=== PATIENT | male | born 2000 | race Caucasian/White ===

== ENCOUNTER 2024-08-01 09:01 | Emergency (ER) | payer OTHER, SELFPAY ==
[2024-08-01 09:37] VITALS: BP 151/82; PULSE 110; RESP 16; TEMP 36.6; O2SAT 98
--- NOTE | 2024-08-01 12:31 | ED_ITS ---
HPI - General Adult General Chief complaint: Unspecified Stated complaint: HEMMORHOIDS Time Seen by Provider: 08/01/24 11:41 Source: patient Mode of arrival: ambulatory Limitations: no limitations History of Present Illness HPI narrative: Patient presents with 8/10 in severity rectal pain. He is concerned for hemorrhoid. No prior GI evaluation / colonoscopy. [place] nausea this morning for the first time but no vomiting. Passing flatus. No prior abdominal surgeries. No abdominal pain. Pain is constant. Started Monday and getting worse. History of hemorrhoids. Not bleeding. Engages in anal receptive intercourse. Has been trying fiber with psyllium gummies to help. Usually, however, he has several bowel movemets a day at baseline but now he is constipated which is new. His last bowel movement was Monday afternoon. He had a fever Monday . He takes Tylenol (1 or 2) in the Am and PM and ibuprofen x2 tablets in the AM and PM. Warm baths help. Related Data Allergies Allergy/AdvReac Type Severity Reaction Status Date / Time No Known Allergies Allergy Verified 08/01/24 09:02 [facility] Past Medical History Medical History History of hemorrhoids Family History Family History (Updated 12/22/17 @ 16:18 by DOCTOR UNKNOWN) Grandparent Family history of malignant neoplasm of breast Family history of malignant neoplasm of esophagus, Onset Age: 80 Father Family history of type 2 diabetes mellitus, Onset Age: 48 Social History Social History Smoking status: Never smoker Second hand tobacco smoke exposure: No Alcohol intake: never Exam Narrative: GENERAL: Well-appearing, well-nourished, and in no acute distress. HEAD: Normocephalic, atraumatic. EYES: Non injected, non icteric ENT: Nares clear, no rhinorrhea or epistaxis. NECK: Supple. CHEST: Speaking in full sentences. No respiratory distress. HEART: Tachycardic rate and rhythm. . ABDOMEN: Soft, nondistended. EXTREMITIES: Normal range of motion. No lower extremity edema. Rectal exam performed with HOLLIE Painter present as contract administrator: No external hemorrhoids or perianal/perirectal abscesses. No evidence of external fissure or sinus tract / ulceration. Patient does have tenderness on digital rectal exam at the 5 o'clock versus 6 o'clock position. It does feel slightly engorged. Prostate not tender to palpation and not boggy. Normal rectal tone. No bleeding. No mucous. No erythema. SKIN: Warm, dry, no rash. NEURO: No focal deficits. Alert and oriented x3. PSYCH: Normal mood and affect. Course Vital Signs Vital signs: Vital Signs Temperature 97.9 F 08/01/24 09:37 Pulse Rate 110 H 08/01/24 09:37 Respiratory Rate 16 08/01/24 09:37 Blood Pressure 151/82 H 08/01/24 09:37 Pulse Oximetry 98 08/01/24 09:37 Oxygen Delivery Room Air 08/01/24 09:37 Temperature 97.8 F 08/01/24 13:34 Pulse Rate 92 08/01/24 13:34 Respiratory Rate 16 08/01/24 13:34 Blood Pressure 122/71 08/01/24 13:34 Pulse Oximetry 98 08/01/24 13:34 Oxygen Delivery Room Air 08/01/24 09:37 Medical Decision Making MDM Narrative Medical decision making narrative: Patient presents with rectal pain which he believes is due to hemorrhoids. In the emergency department he is afebrile with vital signs notable for tachycardia as well as hypertension. He does engage in anal receptive intercourse which puts him at increased risk of other etiologies. However It does feel slightly engorged consistent with an internal hemorrhoid especially given the pain is constant whereas would expect pain from an anal fissure to be more appreciable during our after a bowel movement and more associated with blood on the toilet paper. Offered STI testing but patient declines and he is in presumed monogamous relationship. Handwritten prescription is provided for Sitz bath 15 minutes t.i.d. after each bowel movement to decrease sphincter pressure. Advised to continue stool softeners as bowel regimen for constipation is he currently experiencing but will defer laxatives at this time. Also provided Rx for topical analgesic. Advised follow up with general surgeon and ED return precautions. Stable for discharge. Differential Diagnosis Differential Diagnosis: hemorrhoid (internal/external); rectal prolapse; prostatitis; abscess; fissure; STI Vital Signs Vital Signs: Vital Signs Temperature 97.9 F 08/01/24 09:37 Pulse Rate 110 H 08/01/24 09:37 Respiratory Rate 16 08/01/24 09:37 Blood Pressure 151/82 H 08/01/24 09:37 Pulse Oximetry 98 08/01/24 09:37 Oxygen Delivery Room Air 08/01/24 09:37 Temperature 97.8 F 08/01/24 13:34 Pulse Rate 92 08/01/24 13:34 Respiratory Rate 16 08/01/24 13:34 Blood Pressure 122/71 08/01/24 13:34 Pulse Oximetry 98 08/01/24 13:34 Oxygen Delivery Room Air 08/01/24 09:37 Discharge Plan Discharge Clinical Impression: Anal or rectal pain, Internal hemorrhoid, Constipation Patient Disposition: Home, Self-Care Condition: Stable Instructions: Antibiotic Form, Constipation (DC), High Fiber Diet (ED), Rectal Pain (ED) Additional Instructions: Continue use stool softeners include a high-fiber diet and apply topical analgesic medication but avoid laxatives as these can cause liquids stool which can worsen symptoms. Could also use Sitz bath. Recommend following up outpatient with the surgeon. Return to the emergency department with any new or worsening symptoms such as pain not responding to pain medication. Acetaminophen/Tylenol (maximum 4000 mg per day) is safe to take with NSAIDs (ibuprofen/Motrin) for pain relief. Patient Language: Maori Prescriptions: New psyllium Packet 1 packet PO TID Qty: 30 0RF Rx Instructions: mix into at least 8 oz of water or juice before administering lidocaine [Anecream] 4 % cream 1 applic topical BID PRN (Reason: pain) Qty: 15 0RF ibuprofen 600 mg tablet 600 mg PO TID PRN (Reason: pain) Qty: 30 0RF acetaminophen 500 mg capsule 1,000 mg PO Q6H PRN (Reason: pain) Qty: 30 0RF Follow-up/Referrals: Harms,Aj Gallegos M.D. [Primary Care Provider] - Nas Wahl MD [Physician] - (general surgeon) Stand Alone Forms: Work/School Release IP Time of Disposition: 13:12
[2024-08-01] MEDS: KETOROLAC 30 MG/ML VIAL (*BKC) 15 MG IM (13:22)
[2024-08-01] MEDS: PSYLLIUM POWDER PACKET 1 PACKET PO (13:23)
[2024-08-01] MEDS: LIDOCAINE 2% GEL UROJET 10 ML PKG MUCOUS MEM (13:23)
[2024-08-01 13:34] VITALS: BP 122/71; PULSE 92; RESP 16; TEMP 36.6; O2SAT 98
== END 2024-08-01 13:36 | disposition home or self-care (01) ==
PROVIDERS: Emergency Provider Student in an Organized Health Care Education/Training Program; PCP Family Medicine
DX: K64.8 Other hemorrhoids (principal); K59.00 Constipation, unspecified
CPT/HCPCS: 96372; 99283; A9270; J1885

== ENCOUNTER 2024-08-05 05:01 | Observation (INO) | payer OTHER, SELFPAY ==
[2024-08-05] VITALS (14 sets, daily range): BP systolic 92–138; BP diastolic 49–96; PULSE 70–116; RESP 14–20; TEMP 35.7–38.6; O2SAT 90–99; BMI 30.8
--- NOTE | ~2024-08-05 | CT_ITS ---
CT of the Abdomen and Pelvis: Indication: Gluteal abscess Technique: 2.5 mm axial scans were obtained through the abdomen and pelvis following intravenous adm inistration of 100 cc of Omnipaque 350. Dose reduction technique was used on this scan by utilizing a utomated exposure control and iterative reconstruction technique. The dose-length product (DLP) was 1 338.49 mGy-cm. Findings: Scans through the lung bases are unremarkable. The liver, spleen, pancreas, gallbladder, adrenals and kidneys are within normal limits. No evidence of aortic aneurysm. No lymphadenopathy. No bowel obstruction or bowel wall thickening. There is no evidence to suggest acute appendicitis. Images through the pelvis were performed. Urinary bladder unremarkable. No pelvic mass seen. No ascit es. There is complex multiloculated bilateral perianal abscess. Collection overall measures up to approxi mately 6.9 x 6.5 x 8.9 cm in extent. Impression: Large complex multiloculated bilateral perianal abscess, as detailed above. Reviewed, dictated and finalized at [facility]. CAL FILE CLERK Impression: Large complex multiloculated bilateral perianal abscess, as detailed above.
--- NOTE | 2024-08-05 05:14 | ED_ITS ---
HPI - General Adult General Chief complaint: Recheck/Abnormal Lab/Rx Stated complaint: ANAL SWELLING X 9 DAYS Time Seen by Provider: 08/05/24 05:08 History of Present Illness HPI narrative: Patient 24-year-old gentleman presents emergency department chief complaint pain in the rectal area. Patient reports that he has been having pain since he was seen in the emergency department on the the patient reports that he has been taking lidocaine cream to the area and has started a stool softener. The patient reports he has had no bleeding denies discharge the patient does report that he undergoes receptive anal intercourse and reports that he is non protected but has not had intercourse in 2 weeks. Patient reports he has not used any other items up his rectum denies any trauma. Patient states that his rectal area feels swollen and is tender to touch. Related Data Allergies Allergy/AdvReac Type Severity Reaction Status Date / Time No Known Allergies Allergy Verified 08/05/24 05:07 Review of Systems 2 Review of Systems: A 10 system review of systems was completed on the patient and is negative except for what is stated in the HPI. Nursing and ancillary documentation was reviewed. [facility] Past Medical History Medical History History of hemorrhoids Family History Family History Grandparent Family history of malignant neoplasm of breast Family history of malignant neoplasm of esophagus, Onset Age: 80 Father Family history of type 2 diabetes mellitus, Onset Age: 48 Social History Social History Smoking status: Never smoker Second hand tobacco smoke exposure: No Alcohol intake: never Exam 2 Narrative: GENERAL: Well-appearing, well-nourished, and in no acute distress. HEAD: Normocephalic, atraumatic. EYES: PERRLA and EOMI. ENT: Nares clear, no rhinorrhea or epistaxis. Mucous membranes moist. NECK: Supple. CHEST: Clear to auscultation. No respiratory distress. HEART: Regular rate and rhythm. No murmur heard. Normal peripheral pulses. ABDOMEN: Soft, nontender, nondistended, normal active bowel sounds. EXTREMITIES: Normal range of motion. No edema. : There is redness and swelling in the gluteal area the area surrounding the rectum there is no palpable abscess there is no purulent drainage there is no large external hemorrhoid present SKIN: Warm, dry, no rash. NEURO: No focal deficits. Alert and oriented x3. PSYCH: Normal mood and affect. Course Vital Signs Vital signs: Vital Signs Temperature 37.1 C 08/05/24 05:02 Pulse Rate 116 H 08/05/24 05:02 Respiratory Rate 20 08/05/24 05:02 Blood Pressure 137/96 H 08/05/24 05:02 Pulse Oximetry 99 08/05/24 05:02 Oxygen Delivery Room Air 08/05/24 05:02 Temperature 37.1 C 08/05/24 05:02 Pulse Rate 116 H 08/05/24 05:02 Respiratory Rate 20 08/05/24 05:02 Blood Pressure 137/96 H 08/05/24 05:02 Pulse Oximetry 99 08/05/24 05:02 Oxygen Delivery Room Air 08/05/24 05:02 Medical Decision Making [facility] Narrative Medical decision making narrative: Differential diagnosis includes perianal abscess perirectal abscess, sepsis, cellulitis, Laboratory [place] [address] [place] scan showed a large perianal abscess The case was discussed with surgery the patient was started on Zosyn. A rectal GC chlamydia swab was sent on the patient as well as hepatitis and HIV test Vital Signs Vital Signs: Vital Signs Temperature 37.1 C 08/05/24 05:02 Pulse Rate 116 H 08/05/24 05:02 Respiratory Rate 20 08/05/24 05:02 Blood Pressure 137/96 H 08/05/24 05:02 Pulse Oximetry 99 08/05/24 05:02 Oxygen Delivery Room Air 08/05/24 05:02 Temperature 37.1 C 08/05/24 05:02 Pulse Rate 116 H 08/05/24 05:02 Respiratory Rate 20 08/05/24 05:02 Blood Pressure 137/96 H 08/05/24 05:02 Pulse Oximetry 99 08/05/24 05:02 Oxygen Delivery Room Air 08/05/24 05:02 Lab Data 08/05/24 05:24 08/05/24 05:24 Labs: Lab Results 08/05/24 Range/Units 05:24 WBC 24.0 H (4.5-10.0) K/mm3 RBC 4.75 (4.6-6.20) M/mm3 Hgb 14.4 (14.0-18.0) g/dL Hct 41.2 L (42.0-52.0) % MCV 86.7 (80-100) fl MCH 30.3 (26-34) pg MCHC 35.0 (32-36) g/dl RDW 12.6 (11.5-14.5) % Plt Count 320 (150-375) k/mm3 MPV 10.7 H (7.4-10.4) fl Immature Gran % (Auto) 3.5 H (0-0.5) % Neut % (Auto) 82.0 H (45.5-73.1) % Lymph % (Auto) 6.0 L (18.3-44.2) % [place] % (Auto) 7.6 (2.6-8.5) % Eos % (Auto) 0.2 (0-4.4) % Baso % (Auto) 0.7 (0.2-1.2) % Lymph # (Auto) 1.43 (0.9-3.2) K/mm3 [place] # (Auto) 1.8 H (0.1-0.6) K/mm3 Eos # (Auto) 0.1 (0-0.3) K/mm3 Baso # (Auto) 0.2 H (0.0-0.1) K/mm3 Abs Immat Gran (auto) 0.85 H (0.00-0.031) K/mm3 Absolute Neuts (auto) 19.7 H (1.3-6.7) K/mm3 Absolute Nucleated RBC 0.000 (0.0-0.012) K/mm3 Nucleated RBC % 0.0 (0.0-0.2) % Sodium 134 L (137-145) mmol/L Potassium 3.5 (3.4-5.0) mmol/L Chloride 97 L (98-107) mmol/L Carbon Dioxide 34 H (22-30) mmol/L Anion Gap 3 L (4-12) mmol/L BUN 10 (9-20) mg/dL Creatinine 0.70 (0.7-1.3) mg/dL Estim Creat Clear Calc 184 ml/min Estimated GFR > 60 (59 - ) Glucose 134 H (65-110) mg/dL Lactic Acid 1.2 (0.7-2.0) mmol/L Calcium 9.1 (8.4-10.2) mg/dL Total Bilirubin 1.0 (0.2-1.3) mg/dL AST 48 (17-59) U/L ALT 66 H (6-50) U/L Alkaline Phosphatase 121 (38-126) U/L Total Protein 8.0 (6.3-8.2) g/dL Albumin 3.8 (3.5-5.1) g/dL Lipase 12 L (23-300) U/L Discharge Plan Discharge Clinical Impression: Abscess, perianal, Leukocytosis Patient Disposition: Still a Patient Condition: Stable Patient Language: Kinyarwanda Prescriptions: No Action psyllium Packet 1 packet PO TID Qty: 30 0RF Rx Instructions: mix into at least 8 oz of water or juice before administering lidocaine [Anecream] 4 % cream 1 applic topical BID PRN (Reason: pain) Qty: 15 0RF ibuprofen 600 mg tablet 600 mg PO TID PRN (Reason: pain) Qty: 30 0RF acetaminophen 500 mg capsule 1,000 mg PO Q6H PRN (Reason: pain) Qty: 30 0RF Follow-up/Referrals: Harms,Aj Gallegos M.D. [Primary Care Provider] - Time of Disposition: 06:55
[2024-08-05 05:31] LABS: Basophils Absolute Auto 0.2 K/mm3 (0.0-0.1); Basophils Percent Auto 0.7 % (0.2-1.2); Eosinophils Absolute Auto 0.1 K/mm3 (0-0.3); Eosinophils Percent Auto 0.2 % (0-4.4); Hematocrit 41.2 % (42.0-52.0); Hemoglobin 14.4 g/dL (14.0-18.0); Immature Granulocyte Absolute 0.85 K/mm3 (0.00-0.031); Immature Granulocyte Percent A 3.5 % (0-0.5); Lymphocytes Absolute Auto 1.43 K/mm3 (0.9-3.2); Mean Corpuscular Hemoglobin 30.3 pg (26-34); Mean Corpuscular Volume 86.7 fl (80-100); Mean Platelet Volume 10.7 fl (7.4-10.4); Monocytes Absolute Auto 1.8 K/mm3 (0.1-0.6); Monocytes Percent Auto 7.6 % (2.6-8.5); Neutrophils Absolute Auto 19.7 K/mm3 (1.3-6.7); Platelet Count Result 320 k/mm3 (150-375); Red Blood Count 4.75 M/mm3 (4.6-6.20); Red Cell Distribution Width 12.6 % (11.5-14.5)
[2024-08-05] MEDS: MORPHINE SULFATE (*CRX) 4 MG/ML INJ 2 MG IV PUSH (05:36)
[2024-08-05 05:43] LABS: Lactic Acid Reflex 1.2 mmol/L (0.7-2.0)
[2024-08-05 05:44] LABS: Alanine Aminotransferase 66 U/L (6-50); Albumin Level 3.8 g/dL (3.5-5.1); Alkaline Phosphatase 121 U/L (38-126); Anion Gap 3 mmol/L (4-12); Aspartate Amino Transferase 48 U/L (17-59); Blood Urea Nitrogen 10 mg/dL (9-20); Calcium 9.1 mg/dL (8.4-10.2); Carbon Dioxide 34 mmol/L (22-30); Chloride 97 mmol/L (98-107); Estimated CRCL calculation 184 ml/min; Estimated Glomerular Filt Rate > 60; Glucose 134 mg/dL (65-110); Lipase 12 U/L (23-300); Potassium 3.5 mmol/L (3.4-5.0); Sodium 134 mmol/L (137-145)
--- NOTE | 2024-08-05 05:57 | PC.NURSE ---
Patient being taken to CT via stretcher at this time.
--- NOTE | 2024-08-05 07:22 | PM.IMHP ---
H&P: HPI History of Present Illness Date/Time: 08/05/24 07:22 Chief Complaint: Perianal abscess Narrative: The patient is a 24-year-old male presenting to the emergency department complaining of severe perirectal pain. Patient reports the pain has been present for the last 9 days and has been increasingly worse. The patient reports pressure and swelling in the area. Patient also describes systemic fevers and chills, poor appetite. The patient does report anal receptive intercourse. The patient denies any previous episodes. Workup in the emergency department, including imaging, is significant for large perianal abscess. Review of Systems Review of Systems: All systems reviewed & are unremarkable except as noted in HPI and below PMFSH Past Medical History Medical History History of hemorrhoids Family History Family History Grandparent Family history of malignant neoplasm of breast Family history of malignant neoplasm of esophagus, Onset Age: 80 Father Family history of type 2 diabetes mellitus, Onset Age: 48 Social History Social History Smoking status: Never smoker Second hand tobacco smoke exposure: No Alcohol intake: never Meds Home Medications and Allergies Home Medications ?Medication ?Instructions ?Recorded ?Confirmed ?Type acetaminophen 500 mg capsule 1,000 mg (2 x 500 mg) PO Q6H PRN 08/01/24 Rx pain #30 caps ibuprofen 600 mg tablet 600 mg PO TID PRN pain #30 tabs 08/01/24 Rx lidocaine 4 % topical cream 1 applic topical BID PRN pain #15 08/01/24 Rx (Anecream) grams psyllium 1 packet PO TID #30 ea 08/01/24 Rx Allergies Allergy/AdvReac Type Severity Reaction Status Date / Time No Known Allergies Allergy Verified 08/05/24 05:07 Vital Signs Vital Signs - 24 hr 08/05/24 05:02 Temperature 37.1 C Pulse Rate 116 H Respiratory Rate 20 Blood Pressure 137/96 H Pulse Oximetry 99 Oxygen Delivery Room Air Exam Const: General: cooperative, acute distress mild and uncomfortable HENMT: Head: normal to inspection, normocephalic and atraumatic Eyes: General: appearance normal, both eyes and all related structures Neck: Neck: normal visual inspection and no lymphadenopathy Resp: Auscultation: clear to auscultation bilaterally Cardio: Rate: regular rate Rhythm: regular rhythm GI: Inspection: normal to inspection and non-distended GI Palp: No abdominal tenderness and Yes Soft to palpation Skin: General skin exam: normal color and no rashes or lesions noted Neuro: General: patient oriented x3 and CN's II-XI intact bilaterally Extrem: General: normal to inspection and full ROM H&P: Results Labs Labs: Short CBC 08/05/24 Range/Units 05:24 WBC 24.0 H (4.5-10.0) K/mm3 Hgb 14.4 (14.0-18.0) g/dL Hct 41.2 L (42.0-52.0) % Plt Count 320 (150-375) k/mm3 BMP 08/05/24 05:24 Sodium 134 L Potassium 3.5 Chloride 97 L Carbon Dioxide 34 H BUN 10 Creatinine 0.70 Glucose 134 H Calcium 9.1 Liver Function 08/05/24 Range/Units 05:24 Total Bilirubin 1.0 (0.2-1.3) mg/dL AST 48 (17-59) U/L ALT 66 H (6-50) U/L Alkaline Phosphatase 121 (38-126) U/L Albumin 3.8 (3.5-5.1) g/dL Imaging CT scan - pelvis: My impression: Large perianal abscess Assessment and Plan Assessment and plan (1) Abscess, perianal: Code(s): K61.0 - Anal abscess Status: Acute Assessment and Plan: long discussion with patient and will set up for emergent complex incision and drainage of large perirectal abscess in the operating room, NPO, IV antibiotics
--- NOTE | 2024-08-05 07:25 | WPDHPUPDATE1 ---
History and Physical Update Update Date/Time: 08/05/24 07:25 History and Physical has been reviewed, including an updated exam of the patient. There are NO changes in the patient's condition. Risks, benefits, and alternatives have been discussed and questions answered. Patient agrees to proceed with procedure.
[2024-08-05 07:59] LABS: Hepatitis B Surface Antigen Negative (Negative)
[2024-08-05 08:05] LABS: HAV RESULT Negative (Negative); Hepatitis B Core IgM Result Negative (Negative)
[2024-08-05 08:13] LABS: HIV 1/2 Ab P24 Ag Result Negative (Negative)
[2024-08-05 08:16] LABS: Hepatitis C Virus Antibody Negative (Negative)
[2024-08-05] MEDS: PIPERACILLN/TAZ 3.375GM/NS50ML 3.375 GM/50 ML BAG IVPB ×3 (08:39→20:29)
[2024-08-05 10:23] LABS: Chlamydia trachomatis NOT DETECTED (NOT DETECTE); Neisseria gonorrhoeae PCR NOT DETECTED (NOT DETECTE)
[2024-08-05] MEDS: LACTATED RINGERS 1,000 ML 30 ML IV CONT ×2 (10:27→11:46)
[2024-08-05] MEDS: ACETAMINOPHEN 500 MG TABLET 1000 MG PO (10:28)
[2024-08-05] MEDS: HYDROmorphone HCL INJ (*CRX) 1 MG/ML SYR IV PUSH (10:28)
--- NOTE | 2024-08-05 10:57 | P.PNAN_ITS ---
Anes - Initial Pre Proc Eval Procedure: Operation Date: 08/05/24 11:00 Proposed Procedures p Complex Incision And Drainage Adelaida-Rectal Abscess - Harriet Spears MD Date/Time: 08/05/24 10:57 Surgeon: Harriet Spears MD Pre Op Diagnosis: Perianal abscess Patient Data Age: 24 Gender: M Height: 1.88 m Weight: 109 kg Last Vital Signs Temp 101.4 F H 08/05/24 09:59 Pulse 106 H 08/05/24 09:59 Resp 18 08/05/24 09:59 BP 108/59 L 08/05/24 09:59 Pulse Ox 96 08/05/24 09:59 O2 Del Method Room Air 08/05/24 05:02 Allergies Allergy/AdvReac Type Severity Reaction Status Date / Time No Known Allergies Allergy Verified 08/05/24 08:30 Home Medications ?Medication ?Instructions ?Recorded ?Confirmed ?Type acetaminophen 500 mg capsule 1,000 mg (2 x 500 mg) PO Q6H PRN 08/01/24 08/05/24 Rx pain #30 caps ibuprofen 600 mg tablet 600 mg PO TID PRN pain #30 tabs 08/01/24 08/05/24 Rx lidocaine 4 % topical cream 1 applic topical BID PRN pain #15 08/01/24 08/05/24 Rx (Anecream) grams psyllium 1 packet PO TID #30 ea 08/01/24 08/05/24 Rx Laboratory Tests 08/05/24 08/05/24 08/05/24 05:24 07:05 07:06 WBC 24.0 H K/mm3 (4.5-10.0) RBC 4.75 M/mm3 (4.6-6.20) Hgb 14.4 g/dL (14.0-18.0) Hct 41.2 L % (42.0-52.0) MCV 86.7 fl (80-100) MCH 30.3 pg (26-34) MCHC 35.0 g/dl (32-36) RDW 12.6 % (11.5-14.5) Plt Count 320 k/mm3 (150-375) MPV 10.7 H fl (7.4-10.4) Immature Gran % (Auto) 3.5 H % (0-0.5) Neut % (Auto) 82.0 H % (45.5-73.1) Lymph % (Auto) 6.0 L % (18.3-44.2) [place] % (Auto) 7.6 % (2.6-8.5) Eos % (Auto) 0.2 % (0-4.4) Baso % (Auto) 0.7 % (0.2-1.2) Lymph # (Auto) 1.43 K/mm3 (0.9-3.2) [place] # (Auto) 1.8 H K/mm3 (0.1-0.6) Eos # (Auto) 0.1 K/mm3 (0-0.3) Baso # (Auto) 0.2 H K/mm3 (0.0-0.1) Abs Immat Gran (auto) 0.85 H K/mm3 (0.00-0.031) Absolute Neuts (auto) 19.7 H K/mm3 (1.3-6.7) Absolute Nucleated RBC 0.000 K/mm3 (0.0-0.012) Nucleated RBC % 0.0 % (0.0-0.2) Sodium 134 L mmol/L (137-145) Potassium 3.5 mmol/L (3.4-5.0) Chloride 97 L mmol/L (98-107) Carbon Dioxide 34 H mmol/L (22-30) Anion Gap 3 L mmol/L (4-12) BUN 10 mg/dL (9-20) Creatinine 0.70 mg/dL (0.7-1.3) Estim Creat Clear Calc 184 ml/min Estimated GFR > 60 (59 - ) Glucose 134 H mg/dL (65-110) Lactic Acid 1.2 mmol/L (0.7-2.0) Calcium 9.1 mg/dL (8.4-10.2) Total Bilirubin 1.0 mg/dL (0.2-1.3) AST 48 U/L (17-59) ALT 66 H U/L (6-50) Alkaline Phosphatase 121 U/L (38-126) Total Protein 8.0 g/dL (6.3-8.2) Albumin 3.8 g/dL (3.5-5.1) Lipase 12 L U/L (23-300) C. trachomatis (PCR) Not detected (NOT DETECTE) Hepatitis A IgM Ab Negative (Negative) Hep Bs Antigen Negative (Negative) Hep B Core IgM Ab Negative (Negative) Hepatitis C Ab Screen Negative (Negative) HIV 1&2 Ab/P24 Ag 4thGn Negative (Negative) N. gonorrhoeae (PCR) Not detected (NOT DETECTE) Patient hx anesthesia problems: none Family hx anesthesia problems: none Results Review: All pre-operative results and documents have been reviewed as part of the pre- operative evaluation. [facility] Past Medical History Medical History History of hemorrhoids Family History Family History Grandparent Family history of malignant neoplasm of breast Family history of malignant neoplasm of esophagus, Onset Age: 80 Father Family history of type 2 diabetes mellitus, Onset Age: 48 Social History Social History Smoking status: Never smoker Second hand tobacco smoke exposure: No Alcohol intake: never Substance use: never Do You Feel Safe in your Home?: Yes Lack of Transportation: No Lack of Food: Never True Current Housing: I Have Housing Concerned About Future Housing: No Difficulty Paying Gas/Electric Bills: No Difficulty Paying for Meds: No Currently Unemployed: No Education: High School Diploma/GED Difficulty w/ Childcare or Family Care: No Spiritual care concerns: No Anes - Eval Final PreProcedure Day of Procedure 08/05/24 10:57 Patient weight: obese Heart: regular rate and rhythm Lungs: clear to auscultation Neurological: alert and oriented Last oral intake: >/= 8 hours ASA classification: II Emergent: no Anesthetic plan: proceed Anesthesia type and monitoring: general LMA and standard monitoring Results Review: All pre-operative results and documents have been reviewed as part of the pre- operative evaluation. Informed Consent: The patient's anesthetic plan and its attendant risks and benefits were discussed with the patient/family/POA. Questions were solicited and answers provided to the satisfaction of the patient/family/POA.
[2024-08-05] MEDS: BUPIVACAINE/EPINEPHRINE 0.5% 30 ML VIAL 20 ML INFILTRATE (11:36)
--- NOTE | 2024-08-05 11:52 | W.PM.PROC2 ---
Procedure Note - Detailed Date of Procedure 08/05/24 Pre-op Diagnosis Perianal abscess multiloculated Post-op Diagnosis Same Procedure Performed exam under anesthesia, complex incision and drainage multiloculated perianal abscess measuring 7 x 7 x 9 cm Surgeon Harriet Spears MD Anesthesia General and Local Indications 24-year-old male presenting to the emergency department with severe perirectal pain. Workup, including imaging, significant for large multiloculated perianal abscess Findings 7 x 7 x 9 cm multiloculated perianal abscess Description of Procedure The patient was taken the operating room and placed in the modified lithotomy position. After adequate induction of general anesthesia, the patient was prepped and draped the normal sterile fashion. A time-out was then done to verify the patient's identity, as well as the procedure being performed. I began by doing a bilateral pudendal nerve block. I then did a rectal exam under anesthesia. I used 1st digitally dilated the anus with lubricating jelly. Upon doing the digital exam, a large amount of purulent material was noted to be draining from the anal canal. Upon placing the anoscope, there was noted to be an opening in the posterior anus draining a copious amount of purulent material. I then examined the anal canal and there was noted to be induration and inflammation throughout, especially near the posterior anus at the area of the drainage. There was also noted to be some nonthrombosed external hemorrhoids. I then made an incision at approximately the 7 o'clock position in the anoderm. This seemed to be the area of the most fluctuance. Once this area was opened, a large amount of purulent drainage was noted. I then used a hemostat to bluntly dissect around this very large cavity and multiple loculations were broken and further drainage was noted. Approximately 150-200 mL of purulent drainage was noted. This cavity seemed to track across the midline to the other side as well as posterior and superior. Once this area was completely opened and draining, it measured 7 x 7 x 9 cm. I then copiously irrigated the cavity. I then packed quarter-inch iodoform to keep the area open and draining. Sterile dressing was then placed. The patient tolerated the procedure well and was extubated postoperatively. He will be transferred to the recovery room in stable condition. Estimated Blood Loss 5 Drains No Packing Yes Pathology None sent Complications No immediate complications Condition Stable Disposition PACU [facility] Billing Surgery - Charge Forward: Surgery Billing
[2024-08-05] MEDS: HYDROcodone/acetaminophen (*CRX) 5-325 MG TABLET 1 TAB PO (20:36)
[2024-08-05 21:42] LABS: Add Urine Microscopic? YES; Appearance Urine Clear (Clear); Bacteria Urine None Seen /hpf; Bilirubin Urine Negative (Negative); Blood Urine Negative (Negative); Color Urine Yellow (Yellow); Glucose Urine UA Negative (Negative); Ketones Urine 1+ mg/dL (Negative); Leukocyte Esterase Ur Negative LEU/UL (Negative); Nitrate Urine Negative (Negative); Non Pathogenic Casts 0-2; Protein Urine 1+ mg/dL (Negative); RBC Urine 0-2 /hpf (0-2); Specific Grav Ur > 1.045 (1.001-1.035); Squamous Epithelial Cell Urine None Seen /hpf (Few); Urobilinogen Urine 0.2 mg/dL (<2.0); WBC Urine 0-5 /hpf (0-3); pH Urine 7.5 (5.0-9.0)
[2024-08-05] MEDS: MORPHINE SULFATE (*CRX) 4 MG/ML INJ IV PUSH (22:02)
[2024-08-06] MEDS: PIPERACILLN/TAZ 3.375GM/NS50ML 3.375 GM/50 ML BAG IVPB ×2 (04:03→08:18)
[2024-08-06 06:00] VITALS: BP 124/50; PULSE 77; RESP 12; TEMP 36.4; O2SAT 94
[2024-08-06] MEDS: HYDROcodone/acetaminophen (*CRX) 5-325 MG TABLET 1 TAB PO (09:08)
--- NOTE | 2024-08-06 11:56 | PM.DS ---
DS: Admitting Diagnosis Discharge Date 08/06/24 Admitting Diagnosis Perianal abscess DS: Discharge Diagnosis Discharge Diagnosis (1) Abscess, perianal: Code(s): K61.0 - Anal abscess Status: Acute DS: Summary Hospital Course Reason for hospitalization: The patient is a 24-year-old male presenting to the emergency department complaining of severe perirectal pain. Patient reports the pain has been present for the last 9 days and has been increasingly worse. Workup in the emergency department, including imaging, is significant for large perianal abscess. He was admitted for surgical evaluation and treatment. Hospital Course: The patient was started on IV Zosyn and taken to the OR on 08/05/2024 for rectal exam under anesthesia, incision and drainage of multiloculated perianal abscess by Dr. Spears. This was packed and he was kept overnight for monitoring. This morning, the patient is feeling much better and has been afebrile. He reports his perianal pain has significantly improved and only feels slightly sore today. He had a bowel movement last night without any issues. No other complaints at this time. The patient did pull out his packing earlier this morning prior to my exam. Status at Discharge Functional status at discharge: independent ambulation Overall status at discharge: patient is progressing back to baseline Time Spent with Patient Time attestation: Total time spent providing and/or coordinating discharge services: Exam Const: General: comfortable and no acute distress Orientation/consciousness: patient oriented x3 GI: Inspection: non-distended Other: Perianal abscess with induration, incision dry with no purulent drainage, reportedly much less tender DS: Data Data Completed and Pending Labs on day of discharge: Labs from last 24 hours 08/05/24 08/05/24 21:32 05:24 Hemoglobin A1c 5.0 Urine Color Yellow Urine Appearance Clear Urine pH 7.5 Ur Specific [place] > 1.045 H Urine Protein 1+ H Urine Glucose (UA) Negative Urine Ketones 1+ H Ur Blood (Man) Negative Urine Nitrate Negative Urine Bilirubin Negative Urine Urobilinogen 0.2 Leukocyte Esterase Rfl Negative Urine RBC 0-2 Urine WBC 0-5 Ur Squamous Epith Cells None seen Urine Bacteria None seen Urine Casts 0-2 Procedures/Treatments: Procedures Operation Date: 08/05/24 11:00 Actual Procedure Side Surgeon p Complex Incision And Drainage Adelaida-Rectal Abscess Harriet Spears MD Imaging Radiologist's impression: ITS Impressions Abdomen/Pelvis CT 08/05/24 06:07 Impression: Large complex multiloculated bilateral perianal abscess, as detailed above. Discharge Plan Discharge Attending physician on discharge: Harriet Spears Discharging Clinician: Altagracia Miller Anticipated Discharge Date/Time: 08/06/24 11:52 Patient Disposition: Home, Self-Care Activity: may shower and other - see discharge instructions Diet: as tolerated and regular Wound Care Instructions: incision open to air Discharge Instructions: Shower over incision daily with soap and water. Sitz baths 2-3 times daily as needed May apply gauze to incision if having drainage, otherwise leave open to air Follow-up with Dr. Spears in the office in 2 weeks. Call to make an appointment [phone]. Call sooner if you have fever, pain, or swelling. 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 Patient Instructions: Antibiotic Form Patient Language: Fijian Stand Alone Forms: General Discharge Information, Work/School Release IP Follow-up/Referrals: Harriet Spears MD [Physician] - 2 Weeks Discharge Medications: New hydrocodone-acetaminophen 5-325 mg Tablet 1 tablet PO Q6H PRN (Reason: Pain Rated 4-6) Qty: 7 0RF amoxicillin-pot clavulanate 875-125 mg tablet 1 tablet PO Q12H Qty: 20 0RF Continued psyllium Packet 1 packet PO TID Qty: 30 0RF Patient Comments: has been taking daily, and a second dose later in the day if no bowel movement Rx Instructions: mix into at least 8 oz of water or juice before administering lidocaine [Anecream] 4 % cream 1 applic topical BID PRN (Reason: pain) Qty: 15 0RF ibuprofen 600 mg tablet 600 mg PO TID PRN (Reason: pain) Qty: 30 0RF acetaminophen 500 mg capsule 1,000 mg PO Q6H PRN (Reason: pain) Qty: 30 0RF Date of admission: 08/05/24 06:52 Primary Care Provider: Bonnie,Aj Gallegos Admitting Provider: Harriet Spears Attending physician on admission: Harriet Spears Condition: Stable Quality VTE Prophylaxis VTE prophylaxis: mechanical ordered If No VTE Prophylaxis Answer both mechanical and pharmacologic: Reason no pharmacologic proph: low risk/not indicated
--- OUTSIDE RECORDS SUMMARY | 2024-08-11 14:21 | XMS_ITS | Encounter Summary ---
Author Organization [facility] Address [address] [facility] [address] Care Team Providers Care Insolvency Consultant Name Role Phone Jacqueline Salinas MD Primary Care Provider [phone] Reason for Visit * Reason Comments Pain Abdominal Was hosp 2 weeks ago for possible appy, but turned out to be a virus. Pt still c/o pain. Points to periumbilical area as area which hurts. Vomiting x 3-4 today Encounter Details Date Type Department Care Team (Late st Contact Info) Description 07/07/2011 9:31 AM CPS TEAM LEAD - 07/07/2011 3:04 PM CPS TEAM LEAD Emergency ER at [address] [address] Carlos Bourne MD [address] [place] [phone] Abdominal pain, generalized Discharge Disposition: Home or Self Care Social History Tobacco Use Types Packs/Day Years Used Date Smoking Tobacco: Never Assessed Sex and Gender Information Value Date Recorded Sex Assigned at Not on file Gender Identity Not on file Sexual Orientation Not on file documented as of this encounter Last Filed Vital Signs Vital Sign Reading Time Taken Comments Blood Pressure 97/53 07/07/2011 9:40 AM CPS TEAM LEAD Pulse 67 07/07/2011 12:56 PM CPS TEAM LEAD Temperature 36.9 ??C (98.4 ??F) 07/07/2011 12:[address] Respiratory Rate 18 07/07/2011 12:56 PM CPS TEAM LEAD Oxygen Saturation 99% 07/07/2011 12:56 PM CPS TEAM LEAD Inhaled Oxygen Concentration - - Weight 43.5 kg (95 lb 14.4 oz) 07/07/2011 9:40 A M CPS TEAM LEAD Height - - Body Mass Index - - documented in this encounter Discharge Instructions * Discharge Instructions* Frieda Soni MD - 07/07/2011 2:43 PM CPS TEAM LEAD Giardia (G. Duodenalis, Intestinalis) Giardia is an infection of the small bowel. It affects the intestinal tract and cannot be seen withthe naked eye. CAUSES It is caused by an amoebae (parasite). It is often found in unclean (contaminated) water. But it can also be found in some tap water. SYMPTOMS An infection causes: ?? Explosive, foul smelling, watery diarrhea. ?? Feeling sick to your stomach (nausea). ?? Belly (abdominal) cramps and pain. It takes about one to two weeks after ingesting infected water or food to get sick. The illness usually lasts about 2 to 4 weeks. Infection in infants and children can be long lasting. DIAGNOSIS It can be diagnosed by stool exam. Blood tests may be needed. TREATMENT Medications can be given to shorten the course of the illness. HOME CARE INSTRUCTIONS ?? In areas of contamination, boil your water if possible. Giardia can also be found in some tap water. Filtering removes most Giardia. Cysts of Giardia are resistant to chlorine. ?? Be careful handling soiled undergarments and diapers. If infection is present, it is easily passed by hand to mouth. Use good hand washing techniques. RETURN as directed for follow-up. The family may need treatment if other members get sick. SEEK MEDICAL CARE IF: ?? You do not get better. Document Released: 07/14/2001 Document Re-Released: 04/25/2009 ExitCare?? Patient Information ??2009 Digital [employer]. TEAM LEAD * Discharge Instructions* Document, Scanned - 07/11/2011 8:25 AM CPS TEAM LEAD TEAM LEAD documented in this encounter ED Notes * Quita Padron RN - 07/07/2011 1:32 PM CST Pt resting comfortably and rates pain at a 0/10. Pt requesting to eat. TEAM LEAD * Shannon Gonsalez - 07/07/2011 12:49 PM CST Pt given a total of 4mg of zofran in 2mg dose x 2. modified order after 2mg of zofran already given x 1. TEAM LEAD * Carlos Bourne MD - 07/07/2011 11:19 AM CST Images from the original note were not included. EMERGENCY DEPARTMENT 07/07/[address] Jacqueline Salinas MD We had the pleasure of caring for your patient, Saqib Morillo in our emergency department on 07/07/2011. A note from the provider(s) who cared for your patient is attached. Should you wish to access any laboratory results, please call . Should you wish to access any radiology results, please call , option 3. In addition, you can access patient information 24 hours a day, from any computer, through [employer], the online version of our electronic medical record. If you would like to use this service, please call Thi Dee, Connectivity Coordinator, at . We appreciate the opportunity to care for your patients. If you would like additional information, please call the emergency department directly at . Sincerely, Carlos Bourne MD Division of Emergency Medicine [facility], [place] [facility] [place] FIRST TRAUMA I DESIGNATED EMERGENCY DEPARTMENT 07/07/2011 11:19 AM Saqib Morillo [id number] [facility] EMERGENCY DEPT History Chief Complaint Patient presents with ??? Pain Abdominal Was hosp 2 weeks ago for possible appy, but turned out to be a virus. Pt still c/o pain. Points to periumbilical area as area which hurts. ??? Vomiting x 3-4 today HPI Comments: 11 yo with abdominal pain x 2 weeks... Periumbilical pain with vomiting/nausea... No diarrhea; normal bms 1-2 x/day; not associated with eating; occurs during various times/day... No fever; today vomited 3-4 times; last vomited 1 week ago. Non-bilious/non-bloody. Pmhx: separation anxiety cries when away from mother; parents are + well water at father's house. No past medical history on file. No past surgical history on file. History Social History ??? Marital Status: Single Spouse Name: N/A Number of Children: N/A ??? Years of Education: N/A Occupational History ??? Not on file. Social History Main Topics ??? Smoking status: Not on file ??? Smokeless tobacco: Not on file ??? Alcohol Use: Not on file ??? Drug Use: Not on file ??? Sexually Active: Not on file Other Topics Concern ??? Not on file Social History Narrative ??? No narrative on file Medications No current outpatient prescriptions on file. Review of Systems Review of Systems All other systems reviewed and are negative. BP 97/53 Pulse 72 Temp 97.6 ??F Resp 16 Wt 43.5 kg (95 lb 14.4 oz) Physical Exam Physical Exam Constitutional: He is active. No distress. HENT: Mouth/Throat: Oropharynx is clear. Eyes: Conjunctivae are normal. Neck: Normal range of motion. Neck supple. Cardiovascular: Normal rate, regular rhythm, S1 normal and S2 normal. Pulses are palpable. Pulmonary/Chest: Effort normal and breath sounds normal. No stridor. No respiratory distress. Air movement is not decreased. He has no wheezes. He has no rhonchi. He has no rales. He exhibits no retraction. Abdominal: Soft. Bowel sounds are normal. He exhibits no distension and no mass. There is no hepatosplenomegaly. No tenderness. He has no rebound and no guarding. No hernia. Musculoskeletal: Normal range of motion. normal Neurological: He is alert. Normal Skin: Skin is warm. Capillary refill takes less than 3 seconds. No rash noted. He is not diaphoretic. No pallor. Procedures Procedures EKG Interpretation Lab/SPO2 Interpretation Progress Notes ED Course Medical Decision Making I have personally seen and examined this patient. I have fully participated in the care of this patient. I have reviewed all pertinent clinical information available to me during this encounter, including history, physical exam and plan. I have reviewed available labs and radiographic studies. I reviewed the nurses notes I reviewed the vital signs Ass: Intermittent abdominal pain with vomiting...none now... Given nexium and zofran with no further vomiting. Cmp, cbc, lipase all normal; UA negative x 2 plus ketones; given fluid bolus. Since improved, will discharge home and have f/u with pcp. Resident discussed oupt. F/u with pcp which may include stool cultures, O&P, for possible giardiasis. Clinical Impression Encounter Diagnosis Name Primary? Abdominal pain, generalized TEAM LEAD * Frieda Soni MD - 07/07/2011 10:40 AM CST Provider contact with the patient: 07/07/2011 10:40 AM Saqib Morillo [id number] [facility] EMERGENCY DEPT History Chief Complaint Patient presents with ??? Pain Abdominal Was hosp 2 weeks ago for possible appy, but turned out to be a virus. Pt still c/o pain. Points to periumbilical area as area which hurts. ??? Vomiting x 3-4 today HPI Comments: Saqib Mroillo is a 11 y.o. Male Patient presents with: Pain Abdominal - Was hosp 2 weeks ago for possible appy, but turned out to be a virus. Pt still c/opain. Points to periumbilical area as area which hurts. Vomiting - x 3-4 today No fevers. Ate a good dinner last night. 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 Gets better on bus ride home. On weekends, tends to be worst onnights, sundays more than saturdays. Not particularly related to eating, although occurs in evenings. Has not consistently tried anything although has tried OTC maalox/tums occasionally. No diarrhea.BMs 1-2 times per day with normal consistency. No blood. Emesis is usually clear/frothy, no color unless colored with previously consumed liquids like soda, medicine. No recent URI. No congestion. Mom states that he has been having separation anxiety recently, with crying, when needing to be away from mom. Has been making nurse visits once daily at school. Patient states he has no particular worries, anxieties, or sadness. Recent hospitalization in late May for similar pain (thought current episode is less intense).Thought to be viral mesenteric lymphadenitis. No sign of infection or inflammation at the time. Monday was seen in PCP office and diagnosed with OME. Currently on amoxicillin. Patient sees dad on weekends. Dad [place] and [place]water. Also hunting about 4 weeks ago. No past medical history on file. No past surgical history on file. History Social History ??? Marital Status: Single Spouse Name: N/A Number of Children: N/A ??? Years of Education: N/A Occupational History ??? Not on file. Social History Main Topics ??? Smoking status: Not on file ??? Smokeless tobacco: Not on file ??? Alcohol Use: Not on file ??? Drug Use: Not on file ??? Sexually Active: Not on file Other Topics Concern ??? Not on file Social History Narrative ??? No narrative on file Medications No current outpatient prescriptions on file. Review of Systems Review of Systems Constitutional: Positive for appetite change. Negative for fever and activity change. HENT: Negative. Eyes: Negative. Respiratory: Negative. Cardiovascular: Negative. Gastrointestinal: Positive for nausea, vomiting and abdominal pain. Negative for diarrhea, constipation and blood in stool. Genitourinary: Negative. Musculoskeletal: Negative. Skin: Negative. Neurological: Negative. Hematological: Negative. Psychiatric/Behavioral: Negative for sleep disturbance. The patient is nervous/anxious. BP 97/53 Pulse 72 Temp 97.6 ??F Resp 16 Wt 43.5 kg (95 lb 14.4 oz) Physical Exam Physical Exam Constitutional: He appears well-developed and well-nourished. He is active. No distress. HENT: Head: No signs of injury. Right Ear: Tympanic membrane normal. Left Ear: Tympanic membrane normal. Nose: No nasal discharge. Mouth/Throat: Mucous membranes are moist. No dental caries. No tonsillar exudate. Oropharynx is clear. Pharynx is normal. Eyes: Conjunctivae and EOM are normal. Pupils are equal, round, and reactive to light. Right eye exhibits no discharge. Left eye exhibits no discharge. Neck: Normal range of motion. Neck supple. No rigidity or adenopathy. Cardiovascular: Normal rate and regular rhythm. Pulses are palpable. No murmur heard. Pulmonary/Chest: Effort normal and breath sounds normal. There is normal air entry. No stridor. No respiratory distress. Air movement is not decreased. He has no wheezes. He has no rhonchi. He has hilda. He exhibits no retraction. Abdominal: Soft. Bowel sounds are normal. He exhibits no distension. There is no hepatosplenomegaly. No tenderness. He has no rebound and no guarding. Musculoskeletal: Normal range of motion. Neurological: He is alert. Skin: Skin is warm. Capillary refill takes less than 3 seconds. No petechiae, no purpura and no rash noted. No cyanosis. No jaundice or pallor. Procedures Procedures EKG Interpretation Lab Interpretation Urinalysis:nitrites and bacteria (nitrites positive, bacteria small) Oxygen Saturation Interpretation UA relatively unimpresseive with no WBC. CBC, CMP, lipase normal. Progress Notes ED Course Medical Decision Making Will d/c with instructions to f/u with PCP and potentially get an O&P stool. Discussed with PCP who suggested f/u tomorrow. Clinical Impression Encounter Diagnosis Name Primary? Abdominal pain, generalized TEAM LEAD documented in this encounter Miscellaneous Notes * Miscellaneous Scans - Document, Scanned - 08/01/2011 7:54 PM CST TEAM LEAD * Miscellaneous Scans - Document, Scanned - 08/01/2011 5:49 PM CST TEAM LEAD documented in this encounter Plan of Treatment Not on file documented as of this encounter Procedures Procedure Name Priority Date/Time Associated Diagnosis Comments URINALYSIS REFLEX TO MICROSCOPIC NO CULTURE STAT 07/07/2011 1:30 PM CPS TEAM LEAD CULTURE URINE STAT 07/07/2011 1:30 PM CPS TEAM LEAD DIFFERENTIAL MANUAL STAT 07/07/2011 1 0:40 AM CPS TEAM LEAD CBC W AUTO DIFFERENTIAL STAT 07/07/2011 10:40 AM CPS TEAM LEAD COMPREHENSIVE METABOLIC PANEL STAT 07/07/2011 10:40 AM CPS TEAM LEAD LIPASE BLOOD STAT 07/07/2011 10:40 AM CPS TEAM LEAD documented in this encounter Results * CULTURE URINE (07/07/2011 1:30 PM CPS TEAM LEAD) Result [facility] Comment: Final CULTURE No Growth (<1000 CFU/mL) Urine specimen (specimen) URINE SPECIMEN OBTAINED BY CLEAN CATCH PROCEDURE / Unknown 07/07/2011 1:30 PM CPS TEAM LEAD 07/07/2011 3:01 PM CPS TEAM LEAD Narrative Resulting Agency Comment Performed By [facility];[address] [place] [address];[place] [address] Frieda Soni MD LAB - MICROBIOLOGY O RDERABLES Performing Organization Address City/State/[facility] Co de Phone Number [facility] [address] [place] [address] * URINALYSIS ROUTINE AUTO (07/07/2011 1:30 PM CPS TEAM LEAD) Color UA YELLOW [facility] Character UA CLEAR [facility] Specific [place] UA >=1.030 1.003 - 1.030 [facility] pH UA 5.5 5.0 - 8.0 [facility] Protein UA NEGATIVE Negative [facility] Glucose UA NEGATIVE Negative gm/dl [facility] Ketone UA 2+ Negative [facility] Blood UA NEGATIVE Negative [facility] Bilirubin UA Negative Negative [facility] WBC UA 0-2 /HPF [facility] RBC UA 0-1 /HPF [facility] Mucus UA Small [facility] Bacteria UA Small [facility] Leukocyte UA NEGATIVE [facility] Nitrite UA POSITIVE [facility] Urobilinogen UA 0.2 <=1.0 EU/dl [facility] URINE SPECIMEN OBTAINED BY CLEAN CATCH PROCEDURE / Unknown 07/07/2011 1:30 PM CPS TEAM LEAD 07/07/2011 1:34 PM CPS TEAM LEAD Carlos Bourne MD LAB - URINALYSIS ORD SZUY Performing Organization Address [facility] [[email or web address]] de Phone Number [facility] [address] [place] [address] * LIPASE BLOOD (07/07/2011 10:40 AM CPS TEAM LEAD) Lipase 35 23 - 300 Units/L [facility] BLOOD SPECIMEN / Unknown 07/07/2011 10:40 AM CPS TEAM LEAD 07/07/2011 11:52 AM CPS TEAM LEAD Frieda Soni MD LAB - CHEMISTRY ORDE RABLUISITO Performing Organization Address [facility] de Phone Number [facility] [address] [place] [phone] * (ABNORMAL) DIFFERENTIAL MANUAL (07/07/2011 10:40 AM CPS TEAM LEAD) Pathologist [facility] Comment Manual Diff Done [facility] Band % Manual 11 % [facility] Neutrophils % Manual 66 24 - 66 % [facility] Lymphocytes % Manual 16(L) 22 - 61 % [facility] Monocytes % Manual 6 3 - 15 % [facility] Atypical Lymphocyte % Manual 1 % [facility] RBC Morphology Normal [facility] BLOOD SPECIMEN / Unknown 07/07/2011 10:40 AM CPS TEAM LEAD 07/07/2011 11:10 AM CPS TEAM LEAD Frieda Soni MD LAB - HEMATOLOGY ORD ERABLES Performing Organization Address [facility] [[email or web address]] de Phone Number [facility] [address] [place] [phone] * (ABNORMAL) COMPREHENSIVE METABOLIC PANEL (07/07/2011 10:40 AM CPS TEAM LEAD) Pathologist [facility] Sodium 143 137 - 145 mmol/L [facility] Potassium 4.4 3.5 - 5.1 mmol/L [facility] Chloride 104 98 - 107 mmol/L [facility] CO2 28.5(H) 18 - 27 mmol/L [facility] Glucose 89 70 - 106 mg/dl [facility] BUN 12.6 7 - 18 mg/dl [facility] Calcium 9.7 8.9 - 10.1 mg/dl [facility] Bilirubin Total 0.4(L) 0.6 - 1.4 mg/dl [facility] Protein Total 7.9 6.3 - 8.6 gm/dl [facility] Albumin 4.3 3.7 - 5.6 gm/dl [facility] ALT 17 10 - 35 Units/L [facility] AST 23 10 - 60 Units/L [facility] Alkaline Phosphatase 189 135 - 530 Units/L [facility] Creatinine 0.43 0.31 - 0.88 mg/dl [facility] Blood specimen (specimen) BLOOD SPECIMEN / Unknown 07/07/2011 10:40 AM CPS TEAM LEAD 07/07/2011 11:00 AM CPS TEAM LEAD Frieda Soni MD LAB - CHEMISTRY STACEY WILLIS [facility] Organization Address City/State/[facility] Co de Phone Number [facility] [address] [place] [address] * CBC W AUTO DIFFERENTIAL (07/07/2011 10:40 AM CPS TEAM LEAD) WBC 9.45 4.5 - 14.5 K/cumm [facility] RBC 4.52 4.00 - 5.20 mill/cumm [facility] Hemoglobin 13.1 11.5 - 15.5 gm/dl [facility] Hematocrit 38.3 35.0 - 45.0 % [facility] MCV 84.7 77.0 - 95.0 cu microns [facility] MCH 29.0 25.0 - 33.0 uug [facility] MCHC 34.2 31.0 - 37.0 % [facility] RDW 12.7 % [facility] MPV 11.2 fl [facility] Platelet Count 317 100 - 400 K/cumm [facility] Comment Manual Diff Done [facility] Blood specimen (specimen) BLOOD SPECIMEN / Unknown 07/07/2011 10:40 AM CPS TEAM LEAD 07/07/2011 11:00 AM CPS TEAM LEAD Frieda Soni MD LAB - HEMATOLOGY ORD ERABLES [facility] [address] [place] [address] documented in this encounter Visit Diagnoses Diagnosis Abdominal pain, generalized documented in this encounter Administered Medications Inactive Administered Medications - up to 3 most recent administrations Medication Order MAR Action Action Date Dose Rate Site 0.9 % nacl IV BOLUS 500 mL 500 mL (11.5 mL/kg), at 500 mL/hr, Administer over 60 Minutes, Intravenous, ONCE, 1 dose, On Alee 07/07/11 at 1230 $ Given 07/07/2011 12:43 PM CPS TEAM LEAD 500 mL 500 mL/hr 0.9% NaCl infusion ADS Med 1 dose, Starting on Alee 07/07/11 at 1236, Until Alee 07/07/11 at 1243, QUITA PADRON: cabinet override esomeprazole (NexIUM) injection 20 mg 20 mg (0.46 mg/kg), Intravenous, ONCE, 1 dose, On Alee 07/07/11 at 1215, Administer over 5 minutes. RX diluted in NS. $ Given 07/07/2011 12:43 PM CPS TEAM LEAD 20 mg ondansetron (ZOFRAN) injection 2 mg 2 mg (0.046 mg/kg), Intravenous, EVERY 6 HOURS PRN, Nausea/Vomiting, Starting on Alee 07/07/11 at 1133, Until Alee 07/07/11 at 1147 $ Given 07/07/2011 12:40 PM CPS TEAM LEAD 2 mg ondansetron (ZOFRAN) injection 4 mg 4 mg (0.092 mg/kg), Intravenous, ONCE, 1 dose, On Alee 07/07/11 at 1215 $ Given 07/07/2011 11:59 AM CPS TEAM LEAD 2 mg ondansetron (ZOFRAN) injection ADS Med 1 dose, Starting on Alee 07/07/11 at 1150, Until Alee 07/07/11 at 1147, QUITA PADRON: cabinet override documented in this encounter Active and Recently Administered Medications Times are shown in CPS TEAM LEAD. Scheduled Medication Order 07/05/2011 07/06/2011 07/07/2011 0.9 % nacl IV BOLUS 500 mL (COMPLETED) 500 mL (11.5 mL/kg), at 500 mL/hr, Administer over 60 Minutes, Intravenous, ONCE, 1 dose, On Alee 07/07/11 at 1230 1243 ($ Given - Prov ider: Quita Padron RN)1343 (Due: Rx Stopped - Provider: Quita Padron RN) esomeprazole (NexIUM) injection 20 mg (COMPLETED) 20 mg (0.46 mg/kg), Intravenous, ONCE, 1 dose, On Alee 07/07/11 at 1215, Administer over 5 minutes. RX diluted in NS. 1243 ($ Given - Prov ider: Quita Padron RN) ondansetron (ZOFRAN) injection 4 mg (COMPLETED) 4 mg (0.092 mg/kg), Intravenous, ONCE, 1 dose, On Alee 07/07/11 at 1215 1159 ($ Given - Prov ider: Quita Padron RN)1240 (Not Administered - Provider: Shannon Gonsalez - Reason: See Comments - Comment: zofran given in 2mg dose x 2 d/t md modifying orders.) PRN Medication Order 07/05/2011 07/06/2011 07/07/2011 ondansetron (ZOFRAN) injection 2 mg (CANCELED) 2 mg (0.046 mg/kg), Intravenous, EVERY 6 HOURS PRN, Nausea/Vomiting, Starting on Alee 07/07/11 at 1133, Until Alee 07/07/11 at 1147 1240 ($ Given - Prov ider: Shannon Gonsalez) documented in this encounter Care Teams Insolvency Consultant Relationship Specialty Start Date End Date Jacqueline Salinas MD [address] [place] [id number] PCP - General 06/23/11 documented as of this encounter
--- OUTSIDE RECORDS SUMMARY | 2024-08-11 14:21 | XMS_ITS | Encounter Summary ---
Author Organization [facility] Address [address] [facility] [address] [place] [address] Care Team Providers Care Rent Collector Name Role Phone Aj Nicole MD Primary Care Provider [phone] Reason for Visit * Reason Comments Establish Care Pt is here to est ca re. Encounter Details Date Type Department Care Team (Late st Contact Info) Description 06/11/2021 8:45 AM GROUNDS PERSON Office Visit [facility] Primary Care at [address] [id number] Aj Nicole MD [address] [place] [address] Establishing care with new doctor, encounter for (Primary Dx); Lipid screening Social History Tobacco Use Types Packs/Day Years Used Date Smoking Tobacco: Never Smokeless Tobacco: Never PHQ-2 Answer Date Recorded PHQ-2 Total Score (If total score is 3 or more points, staff should administer the PHQ-9) 0 06/11/2021 Sex and Gender Information Value Date Recorded Sex Assigned at Not on file Legal Sex Male 12:24 AM GROUNDS PERSON Gender Identity Not on file Sexual Orientation Not on file documented as of this encounter Last Filed Vital Signs Vital Sign Reading Time Taken Comments Blood Pressure 112/72 06/11/2021 8:44 AM GROUNDS PERSON Pulse 66 06/11/2021 8:44 AM GROUNDS PERSON Temperature 37 ??C (98.6 ??F) 06/11/2021 8:44 AM GROUNDS PERSON Respiratory Rate - - Oxygen Saturation 98% 06/11/2021 8:44 AM GROUNDS PERSON Inhaled Oxygen Concentration - - Weight 66.8 kg (147 lb 4.8 oz) 06/11/2021 8:44 A M GROUNDS PERSON Height 185.4 cm (6' 1 ) 06/11/2021 8:44 AM GROUNDS PERSON Body Mass Index 19.43 06/11/2021 8:44 AM GROUNDS PERSON documented in this encounter Progress Notes * Aj Nicole MD - 06/11/2021 8:45 AM CST Images from the original note were not included. [facility] Saqib Morillo Chief Complaint. Chief Complaint Patient presents with ??? Establish Care Pt is here to est care. HPI. Patient is a 21 y.o. male Mr. Morillo, 21 y/o presents to clinic to establish care. PMHx sig for healthy active lifestyle. No PSHx. No hx of tobacco, EtOH or orther drugs. Fully vaccinated. 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 NO early family hx of prostate/colon cancer. Reviewed sun/skin cancer screening. Only hospitalizaiton at age 11 for f/o appendicitis and resolved spontaneously. History reviewed. No pertinent past medical history. History reviewed. No pertinent surgical history. HOME MEDICATIONS : Not on File No Known Allergies Social History Tobacco Use ??? Smoking status: Never Smoker ??? Smokeless tobacco: Never Used Substance Use Topics ??? Alcohol use: Not on file History reviewed. No pertinent family history. Review of Systems: Review of Systems Constitutional: Negative for activity change, fatigue and fever. HENT: Negative for postnasal drip and rhinorrhea. Respiratory: Negative for chest tightness, shortness of breath and wheezing. Cardiovascular: Negative for chest pain and leg swelling. Gastrointestinal: Negative for abdominal pain, blood in stool, constipation, diarrhea, nausea and vomiting. Genitourinary: Negative for dysuria and hematuria. Musculoskeletal: Negative for back pain, myalgias and neck pain. Neurological: Negative for dizziness, tremors, weakness, light-headedness and headaches. Psychiatric/Behavioral: Negative for sleep disturbance and suicidal ideas. BP 112/72 (BP Location: Left arm, Patient Position: Sitting) Pulse 66 Temp 37 ??C (98.6 ??F) (Oral) Ht 185.4 cm (6' 1 ) Wt 66.8 kg (147 lb 4.8 oz) SpO2 98% BMI 19.43 kg/m?? Physical Exam: Physical Exam Vitals reviewed. Constitutional: General: He is not in acute distress. HENT: Mouth/Throat: Pharynx: No oropharyngeal exudate. Eyes: General: No scleral icterus. Neck: Vascular: No JVD. Cardiovascular: Rate and Rhythm: Normal rate and regular rhythm. Heart sounds: No murmur heard. Pulmonary: Effort: Pulmonary effort is normal. No respiratory distress. Breath sounds: Normal breath sounds. Abdominal: General: Bowel sounds are normal. Palpations: Abdomen is soft. Musculoskeletal: Cervical back: Neck supple. Right lower leg: No edema. Left lower leg: No edema. Lymphadenopathy: Cervical: No cervical adenopathy. Skin: Findings: No erythema. Comments: Mild comedonal acne Neurological: Mental Status: He is alert and oriented to person, place, and time. Psychiatric: Thought Content: Thought content normal. Assessment & Plan: Diagnoses and all orders for this visit: Establishing care with new doctor, encounter for (Primary) - Lipid panel; Future - Comprehensive metabolic panel; Future - CBC with auto differential; Future Patient congratulated on active, helathy lifestyle. FUlly vaccinated., No indications for early labwork or other cancer screenings. Reviewed sun/skin protection. Return to clinic in one year or prn. Other orders - Flu Vaccine Quad PF 3y+ IM - Fluzone BMI Follow-up includes: nutrition counseling. Body mass index is 19.43 kg/m??. Aj Nicole MD NDS PERSON documented in this encounter Plan of Treatment Not on file documented as of this encounter Visit Diagnoses Diagnosis Establishing care with new doctor, encounter for- Primary Lipid screening Screening for lipoid disorders documented in this encounter Orders Immunization/Injection Count Last Ordered Date First Ordered Date FLU VACCINE QUAD PF 3Y+ IM - AFLURIA 1 05/31 documented in this encounter Care Teams Rent Collector Relationship Specialty Start Date End Date Aj Nicole MD [address] [place] [address] PCP - General Family Medicine 05/31/21 documented as of this encounter
--- OUTSIDE RECORDS SUMMARY | 2024-08-11 14:21 | XMS_ITS | Referral Summary ---
Author Organization [address] Address [address] [place] [id number] Care Team Providers Care Muffle Operator Name Role Phone Aj Nicole MD Primary Care Provider [phone] Encounters Date Type Department Care Team Description 08/05/2024 Orders Only [facility] Health Information Management [address] [place] [address] Scanning, Provider from Last 3 Months Allergies No known active allergies Medications No known medications Active Problems No known active problems Immunizations Name Administration Dates Next Due DTP 04/12/2005, 2,2000,06/30,2000 Hep B, Adolescent or Pediatric 2000,1999,2000 HiB 06/02/2001, 1,2000,05/01 IPV 04/09/2005, 2,2000,05/01 Influenza, Quadrivalent, Spl it, Preservative Free, Intramuscular 06/11/2021 MMR 06/02/2005,04/09/2005 Meningococcal MCV4P (Menactra) 04/27/2018 Tdap 12/04/2020 Varicella 03/20/2001 Social History Tobacco Use Types Packs/Day Years Used Date Smoking Tobacco: Never Smokeless Tobacco: Never PHQ-2 Answer Date Recorded PHQ-2 Total Score (If total score is 3 or more points, staff should administer the PHQ-9) 0 06/11/2021 Personal Safety Answer Date Recorded Getting School Help Needed Not on file 02/25 /2024 Sex and Gender Information Value Date Recorded Sex Assigned at Not on file 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 Gender Identity Not on file Sexual Orientation Not on file Last Filed Vital Signs Vital Sign Reading Time Taken Comments Blood Pressure 134/66 05/23/2022 8:29 AM CDT Pulse 98 05/23/2022 8:29 AM CDT Temperature 36.7 ??C (98 ??F) 05/23/2022 8:29 AM CDT Respiratory Rate 18 05/23/2022 8:29 AM CDT Oxygen Saturation 99% 05/23/2022 8:29 AM CDT Inhaled Oxygen Concentration - - Weight 95.3 kg (210 lb) 05/23/2022 8:29 AM CDT Height 185.4 cm (6' 1 ) 05/23/2022 8:29 AM CDT Body Mass Index 27.71 05/23/2022 8:29 AM CDT Plan of Treatment Not on file Procedures Procedure Name Priority Date/Time Associated Diagnosis Comments SCAN - LABS 08/05/2024 SCAN - RADIOLOGY/IMAGING 08/05/2024 from Last 3 Months Results * SCAN - RADIOLOGY/IMAGING (08/05/2024) Anatomical Region Laterality Modality Other us Provider Scanning Final Result * SCAN - LABS (08/05/2024) us Provider Scanning Final Result from Last 3 Months Insurance Care Teams Muffle Operator Relationship Specialty Start Date End Date [place] [address] [place] [address] PCP - General Family Medicine 05/31/21
--- OUTSIDE RECORDS SUMMARY | 2024-08-11 14:21 | XMS_ITS | Patient Health Summary ---
Author Organization [facility] Address [address] [place] [address] Care Team Providers Care Marine Insulator Name Role Phone Jacqueline Salinas MD Primary Care Provider [phone] Note from [facility],non-owned Affiliates and Associated Physician Practices is amultiple site organization consisting of ambulatory clinics and hospital sitesin [place], [place], [place] and [place]. This disclosure is being madepursuant to the Care Everywhere program and may not contain all information available regarding this patient. Last updated 18.[facility] Allergies No known active allergies Medications Be aware that medications may not be up to date on this document. Always verify current medications with the patient. No known medications Immunizations * TDAP (7yrs+)(Given 12/04/2020) Social History Tobacco Use Types Packs/Day Years Used Date Smoking Tobacco: Never Assessed Sex and Gender Information Value Date Recorded Sex Assigned at Not on file Gender Identity Not on file Sexual Orientation Not on file Last Filed Vital Signs Vital Sign Reading Time Taken Comments Blood Pressure 97/53 07/07/2011 9:40 AM ENTRY LEVEL AUTOMOTIVE TECHNICIAN Pulse 67 07/07/2011 12:56 PM ENTRY LEVEL AUTOMOTIVE TECHNICIAN Temperature 36.9 ??C (98.4 ??F) 07/07/2011 12:[address] Respiratory Rate 18 07/07/2011 12:56 PM ENTRY LEVEL AUTOMOTIVE TECHNICIAN Oxygen Saturation 99% 07/07/2011 12:56 PM ENTRY LEVEL AUTOMOTIVE TECHNICIAN Inhaled Oxygen Concentration - - Weight 43.5 kg (95 lb 14.4 oz) 07/07/2011 9:40 A M ENTRY LEVEL AUTOMOTIVE TECHNICIAN Height - - Body Mass Index - - Procedures * IMAGING/RADIOLOGY/XRAY RESULTS ORDER(Performed 07/11/2011) * URINALYSIS REFLEX TO MICROSCOPIC NO CULTURE(Performed 07/07/2011) * CULTURE URINE(Performed 07/07/2011) * LIPASE BLOOD(Performed 07/07/2011) * DIFFERENTIAL MANUAL(Performed 07/07/2011) * COMPREHENSIVE METABOLIC PANEL(Performed 07/07/2011) * CBC W AUTO DIFFERENTIAL(Performed 07/07/2011) * LAB RESULTS ORDER(Performed 06/27/2011) * XR CHEST 2VW(Performed 06/24/2011) Performed for Mesenteric adenitis * CBC W MANUAL DIFFERENTIAL(Performed 06/24/2011) * DIFFERENTIAL MANUAL(Performed 06/23/2011) * CBC W AUTO DIFFERENTIAL(Performed 06/23/2011) * MONONUCLEOSIS SCREEN(Performed 06/23/2011) * CULTURE STREP GROUP A(Performed 06/23/2011) * STREP A SCREEN DIRECT(Performed 06/23/2011) * CBC W MANUAL DIFFERENTIAL(Performed 06/23/2011) Results * IMAGING/RADIOLOGY/XRAY RESULTS ORDER (07/11/2011 7:06 PM ENTRY LEVEL AUTOMOTIVE TECHNICIAN) Anatomical Region Laterality Modality Other Narrative Transcriptions Document, Scanned - 06/27/2011 12:18 PM CST Document, Scanned - 07/11/2011 7:06 PM CST Scanned Document IMAGING * URINALYSIS ROUTINE AUTO (07/07/2011 1:30 PM ENTRY LEVEL AUTOMOTIVE TECHNICIAN) Color UA YELLOW [facility] Character UA CLEAR [facility] Specific [place] UA >=1.030 1.003 - 1.030 [facility] pH UA 5.5 5.0 - 8.0 [facility] Protein UA NEGATIVE Negative [facility] Glucose UA NEGATIVE Negative gm/dl [facility] Ketone UA 2+ Negative [facility] Blood UA NEGATIVE Negative [facility] Bilirubin UA Negative Negative [facility] WBC UA 0-2 /HPF [facility] RBC UA 0-1 /HPF [facility] Mucus UA Small [facility] Bacteria UA Small [facility] Leukocyte UA NEGATIVE [facility] Nitrite UA POSITIVE [facility] Urobilinogen UA 0.2 <=1.0 EU/dl [facility] URINE SPECIMEN OBTAINED BY CLEAN CATCH PROCEDURE / Unknown 07/07/2011 1:30 PM ENTRY LEVEL AUTOMOTIVE TECHNICIAN 07/07/2011 1:34 PM ENTRY LEVEL AUTOMOTIVE TECHNICIAN Carlos Bourne MD LAB - URINALYSIS ORD ERABLES Performing Organization Address [facility] de Phone Number [facility] [address] [place] [address] * CULTURE URINE (07/07/2011 1:30 PM ENTRY LEVEL AUTOMOTIVE TECHNICIAN) Result [facility] Comment: Final CULTURE No Growth (<1000 CFU/mL) Urine specimen (specimen) URINE SPECIMEN OBTAINED BY CLEAN CATCH PROCEDURE / Unknown 07/07/2011 1:30 PM ENTRY LEVEL AUTOMOTIVE TECHNICIAN 07/07/2011 3:01 PM ENTRY LEVEL AUTOMOTIVE TECHNICIAN Narrative Resulting Agency Comment Performed By [facility];[address] [place] [address];[place] [address] Frieda Soni MD LAB - MICROBIOLOGY O RDERABLES Performing Organization Address [facility] de Phone Number [facility] [address] [place] [address] * (ABNORMAL) DIFFERENTIAL MANUAL (07/07/2011 10:40 AM ENTRY LEVEL AUTOMOTIVE TECHNICIAN) Only the most recent of2 resultswithin the time period is included. Comment Manual Diff Done [facility] Band % Manual 11 % [facility] Neutrophils % Manual 66 24 - 66 % [facility] Lymphocytes % Manual 16(L) 22 - 61 % [facility] Monocytes % Manual 6 3 - 15 % [facility] Atypical Lymphocyte % Manual 1 % [facility] RBC Morphology Normal [facility] BLOOD SPECIMEN / Unknown 07/07/2011 10:40 AM ENTRY LEVEL AUTOMOTIVE TECHNICIAN 07/07/2011 11:10 AM ENTRY LEVEL AUTOMOTIVE TECHNICIAN Frieda Soni MD LAB - HEMATOLOGY ORD ERABLES Performing Organization Address [facility] Co de Phone Number [facility] [address] [place] [address] * CBC W AUTO DIFFERENTIAL (07/07/2011 10:40 AM ENTRY LEVEL AUTOMOTIVE TECHNICIAN) Only the most recent of2 resultswithin the time period is included. WBC 9.45 4.5 - 14.5 K/cumm [facility] RBC 4.52 4.00 - 5.20 mill/cumm [facility] Hemoglobin 13.1 11.5 - 15.5 gm/dl [facility] Hematocrit 38.3 35.0 - 45.0 % [facility] MCV 84.7 77.0 - 95.0 cu microns [facility] MCH 29.0 25.0 - 33.0 uug [facility] MCHC 34.2 31.0 - 37.0 % [facility] RDW 12.7 % [facility] MPV 11.2 fl [facility] Platelet Count 317 100 - 400 K/cumm [facility] Comment Manual Diff Done [facility] Blood specimen (specimen) BLOOD SPECIMEN / Unknown 07/07/2011 10:40 AM ENTRY LEVEL AUTOMOTIVE TECHNICIAN 07/07/2011 11:00 AM ENTRY LEVEL AUTOMOTIVE TECHNICIAN Frieda Soni MD LAB - HEMATOLOGY ORD ERABLES Performing Organization Address [facility] de Phone Number [facility] [address] [place] [address] * (ABNORMAL) COMPREHENSIVE METABOLIC PANEL (07/07/2011 10:40 AM ENTRY LEVEL AUTOMOTIVE TECHNICIAN) Sodium 143 137 - 145 mmol/L [facility] Potassium 4.4 3.5 - 5.1 mmol/L [facility] Chloride 104 98 - 107 mmol/L [facility] CO2 28.5(H) 18 - 27 mmol/L [facility] Glucose 89 70 - 106 mg/dl [facility] BUN 12.6 7 - 18 mg/dl [facility] Calcium 9.7 8.9 - 10.1 mg/dl [facility] Bilirubin Total 0.4(L) 0.6 - 1.4 mg/dl [facility] Protein Total 7.9 6.3 - 8.6 gm/dl [facility] Albumin 4.3 3.7 - 5.6 gm/dl [facility] ALT 17 10 - 35 Units/L [facility] AST 23 10 - 60 Units/L [facility] Alkaline Phosphatase 189 135 - 530 Units/L [facility] Creatinine 0.43 0.31 - 0.88 mg/dl [facility] Blood specimen (specimen) BLOOD SPECIMEN / Unknown 07/07/2011 10:40 AM ENTRY LEVEL AUTOMOTIVE TECHNICIAN 07/07/2011 11:00 AM ENTRY LEVEL AUTOMOTIVE TECHNICIAN Frieda Soni MD LAB - CHEMISTRY STACEY WILLIS Performing Organization Address [facility] de Phone Number [facility] [address] [place] [address] * LIPASE BLOOD (07/07/2011 10:40 AM ENTRY LEVEL AUTOMOTIVE TECHNICIAN) Lipase 35 23 - 300 Units/L [facility] BLOOD SPECIMEN / Unknown 07/07/2011 10:40 AM ENTRY LEVEL AUTOMOTIVE TECHNICIAN 07/07/2011 11:52 AM ENTRY LEVEL AUTOMOTIVE TECHNICIAN Frieda Soni MD LAB - CHEMISTRY STACEY WILLIS Performing Organization Address [facility] de Phone Number [facility] [address] [place] [address] * LAB RESULTS ORDER (06/27/2011 12:18 PM ENTRY LEVEL AUTOMOTIVE TECHNICIAN) Narrative Transcriptions Document, Scanned - 06/27/2011 12:18 PM CST Scanned Document LAB - THERAPEUTIC DR SIRENA MONITORING ORDERABLES * XR CHEST PA AND LATERAL (06/24/2011 9:12 AM ENTRY LEVEL AUTOMOTIVE TECHNICIAN) Anatomical Region Laterality Modality Chest Radiographic Una ging 06/24/2011 9:49 AM ENTRY LEVEL AUTOMOTIVE TECHNICIAN Impressions 06/24/2011 9:49 AM ENTRY LEVEL AUTOMOTIVE TECHNICIAN ??Reactive airways changes as described above with no confluent infiltrate. Narrative 06/24/2011 9:49 AM ENTRY LEVEL AUTOMOTIVE TECHNICIAN EXAMINATION:Two-view chest dated ??Jun 24, 2011 09:13:33 AM . HISTORY: ?Nonspecific mesenteric lymphadenitis . PA and lateral views of the chest are obtained. No prior examinations are available for comparison. The cardiothymic silhouette is within normal limits. The lungs are hyperinflated with mild ??increased perihilar markings in a pattern consistent with reactive airways disease. No confluent alveolar infiltrate is identified. No bony or soft tissue abnormalities are appreciated. Procedure Note Aung Alanis - 06/24/2011 EXAMINATION:Two-view chest dated Jun 24, 2011 09:13:33 AM . HISTORY: Nonspecific mesenteric lymphadenitis . PA and lateral views of the chest are obtained. No prior examinations are available for comparison. The cardiothymic silhouette is within normal limits. The lungs are hyperinflated with mild increased perihilar markings in a pattern consistent with reactive airways disease. No confluent alveolar infiltrate is identified. No bony or soft tissue abnormalities are appreciated. IMPRESSION Reactive airways changes as described above with no confluent infiltrate. Gerard Garcia MD DIAGNOSTIC IMAGING O RDERABLES * CBC W MANUAL DIFFERENTIAL (06/24/2011 7:15 AM ENTRY LEVEL AUTOMOTIVE TECHNICIAN) Only the most recent of2 resultswithin the time period is included. WBC 7.99 4.5 - 14.5 K/cumm [facility] RBC 4.42 4.00 - 5.20 mill/cumm [facility] Hemoglobin 13.0 11.5 - 15.5 gm/dl [facility] Hematocrit 37.9 35.0 - 45.0 % [facility] MCV 85.7 77.0 - 95.0 cu microns [facility] MCH 29.4 25.0 - 33.0 uug [facility] MCHC 34.3 31.0 - 37.0 % [facility] RDW 12.9 % [facility] MPV 11.4 fl [facility] Platelet Count 237 100 - 400 K/cumm [facility] Comment Manual Diff Done [facility] Band % Manual 2 % [facility] Neutrophils % Manual 62 24 - 66 % [facility] Lymphocytes % Manual 23 22 - 61 % [facility] Monocytes % Manual 6 3 - 15 % [facility] Eosinophils % Manual 5 0 - 10 % [facility] Atypical Lymphocyte % Manual 2 % [facility] RBC Morphology Slight Anisocytosis, Poikylocytosis [facility] BLOOD SPECIMEN / Unknown 06/24/2011 7:15 AM ENTRY LEVEL AUTOMOTIVE TECHNICIAN 06/24/2011 7:23 AM ENTRY LEVEL AUTOMOTIVE TECHNICIAN Gerard Garcia MD LAB - HEMATOLOGY ORD ERABLES Performing Organization Address [facility] Co de Phone Number [facility] [address] [place] [address] * MONONUCLEOSIS SCREEN (06/23/2011 3:13 PM ENTRY LEVEL AUTOMOTIVE TECHNICIAN) Mononucleosis Screen Negative Negative [facility] Blood specimen (specimen) BLOOD SPECIMEN / Unknown 06/23/2011 3:13 PM ENTRY LEVEL AUTOMOTIVE TECHNICIAN 06/23/2011 3:24 PM ENTRY LEVEL AUTOMOTIVE TECHNICIAN Virgilio Ruiz MD LAB - CHEMISTRY ORDE RABLES Performing Organization Address [facility] Co de Phone Number [facility] [address] [place] [address] * STREP A SCREEN DIRECT (06/23/2011 10:15 AM ENTRY LEVEL AUTOMOTIVE TECHNICIAN) Strep A Rapid Negative Neg Grp A Beta Strep [facility] Miscellaneous samples (specimen) ENTIRE THROAT (SURFACE REGION OF NECK) / Unknown 06/23/2011 10:15 AM ENTRY LEVEL AUTOMOTIVE TECHNICIAN 06/23/2011 10:26 AM ENTRY LEVEL AUTOMOTIVE TECHNICIAN Virgilio Ruiz MD LAB - MICROBIOLOGY O RDERABLES Performing Organization Address [facility] Co de Phone Number [facility] [address] [place] [address] * CULTURE STREP GROUP A (06/23/2011 10:15 AM ENTRY LEVEL AUTOMOTIVE TECHNICIAN) Result [facility] Comment: Final NO growth of beta-hemolytic strep Group A ENTIRE THROAT (SURFACE REGION OF NECK) / Unknown 06/23/2011 10:15 AM ENTRY LEVEL AUTOMOTIVE TECHNICIAN 06/23/2011 10:44 AM ENTRY LEVEL AUTOMOTIVE TECHNICIAN Narrative Resulting Agency Comment Performed By [facility];[address] [facility] [place] [address] Angelo Ardon MD LAB - MICROBIOLOGY ORDERABLES Performing Organization Address [facility] Co de Phone Number [facility] [address] [place] [phone] Care Teams Marine Insulator Relationship Specialty Start Date End Date Jacqueline Salinas MD [address] [place] [address] PCP - General 06/23/11
--- OUTSIDE RECORDS SUMMARY | 2024-08-11 14:21 | XMS_ITS | Clinical Summary ---
Author Organization [address] Address [address] [place] [id number] Care Team Providers Care Director Child Abuse Therapy Name Role Phone Aj Nicole MD Primary Care Provider [phone] Allergies No known active allergies Medications No known medications Active Problems No known active problems Encounters Date Type Department Care Team Description 08/05/2024 Orders Only [facility] [place] Health Information Management [address] [place], [place] [id number] Scanning, Provider from Last 3 Months Immunizations Name Administration Dates Next Due DTP [...] on file Legal 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 Gender Identity Not on file Sexual Orientation Not on file Obstetrics History Last Filed Vital Signs Vital Sign Reading [...] 05/23/2022 8:29 AM CDT Plan of Treatment Health Maintenance Due Date Last Done Comments Hepatitis C Screening 2000 Varicella Vaccines (2 of 2 - 2-dose childhood series) 2004 03/20/2001 HPV Vaccines (1 - Male 3-dose series) 02/28/2015 Regular Well Visit/Exam 18-64 02/28/2018 Depression Screening 06/11/2022 06/11/2021 Covid-19 Vaccine (3 - 2023- season) 2024 11/13/2020, 10/09/2020 Influenza Vaccine (#1) 2024 06/11/2021 DTaP/Tdap/Td Vaccine (7 - Td or Tdap) 12/04/2030 12/04/2020, 04/12/2005, 09/15/2001, Additional history exists Pneumococcal vaccine <65 Aged Out No longer eligible based on patient's age to complete this topic Procedures Procedure Name Priority Date/Time Associated Diagnosis Comments SCAN - LABS 08/05/2024 SCAN - RADIOLOGY/IMAGING 08/05/2024 from Last 3 Months Results * SCAN - RADIOLOGY/IMAGING (08/05/2024) Anatomical Region Laterality Modality Other us Provider Scanning Final Result * SCAN - LABS (08/05/2024) us Provider Scanning Final Result from Last 3 Months Insurance [place] [id number] Care Teams Director Child Abuse Therapy Relationship Specialty Start Date End Date Aj Nicole MD [address] [place] [address] PCP - General Family Medicine 05/31/21
--- OUTSIDE RECORDS SUMMARY | 2024-08-11 14:21 | XMS_ITS | Clinical Summary ---
Author Organization [facility] Address [address] [address] Care Team Providers Care Neon Sign Worker Name Role Phone Jacqueline Salinas MD Primary Care Provider [phone] Source Comments [facility],non-owned Affiliates and Associated Physician Practices is amultiple site organization consisting of ambulatory clinics and hospital sitesin [place], [place], [place] and [place]. This disclosure is being madepursuant to the Care Everywhere program and may not contain all information available regarding this patient. Last updated 18.[facility] Allergies No known active allergies Medications Be aware that medications may not be up to date on this document. Always verify current medications with the patient. 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 Pulse 67 07/07/2011 12:56 PM HEAT SEAL OPERATOR Temperature 36.9 ??C (98.4 ??F) 07/07/2011 12:[address] Respiratory Rate 18 07/07/2011 12:56 PM HEAT SEAL OPERATOR Oxygen Saturation 99% 07/07/2011 12:56 PM HEAT SEAL OPERATOR Inhaled Oxygen Concentration - - Weight 43.5 kg (95 lb 14.4 oz) 07/07/2011 9:40 A M HEAT SEAL OPERATOR Height - - Body Mass Index - - Plan of Treatment Health Maintenance Due Date Last Done Comments HIV SCREENING 02/28/2015 HPV VACCINE (1 - Male 3-dose series) 02/28/2015 HEPATITIS C SCREENING 02/24/2018 HEPATITIS B VACCINE (1 of 3 - 19+ 3-dose series) 02/28/2019 COVID-19 VACCINE (1 - 2023-2 5 season) 2024 INFLUENZA VACCINE (#1) 2024 DEPRESSION SCREENING 07/31/2024 DTAP/TDAP/TD VACCINES (2 - T d or Tdap) 12/04/2030 12/04/2020 ZOSTER VACCINE (1 of 2) 02/28/2050 HIB VACCINE Aged Out No longer eligi ble based on patient's age to complete this topic MENINGOCOCCAL (Group B) VACCINE Aged Out No longer eligible based on patient's age to complete this topic MENINGOCOCCAL VACCINE Aged Out No yeni milly eligible based on patient's age to complete this topic PNEUMOCOCCAL VACCINE Aged Out No long er eligible based on patient's age to complete this topic Care Teams Neon Sign Worker Relationship Specialty Start Date End Date Jacqueline Salinas MD [address] [place] [address] PCP - General 06/23/11
--- OUTSIDE RECORDS SUMMARY | 2024-08-11 14:21 | XMS_ITS | Encounter Summary ---
Author Organization [facility] Address [address] [place] [address] Care Team Providers Care Stave Log Cut Off Saw Operator Name Role Phone Jacqueline Salinas MD Primary Care Provider [phone] Encounter Details Date Type Department Care Team (Late st Contact Info) Description 12/04/2020 3:00 PM CDT Office Visit [facility] [address] [phone] Provider, Brenton Richardson [place] Need for vaccination (Primary Dx) Social History Tobacco Use Types Packs/Day Years Used Date Smoking Tobacco: Never Assessed Sex and Gender Information Value Date Recorded Sex Assigned at Not on file Gender Identity Not on file Sexual Orientation Not on file documented as of this encounter Progress Notes * Yumiko Bang APRN-CNP - 12/04/2020 3:03 PM CDT Patient given tdap vaccine today Reviewed AMADO No issues noted on AMADO AMADO scanned into chart Patient tolerated procedure without difficulty Denies any further questions Patient instructed to remain in building for 15 minutes and to return to clinic if they notice any reaction Patient instructions: May use Ibuprofen as needed for pain at injection site if needed Cold compress to injection site as needed documented in this encounter Plan of Treatment Not on file documented as of this encounter Visit Diagnoses Diagnosis Need for vaccination- Primary Need for prophylactic vaccination and inoculation against unspecified single disease documented in this encounter Care Teams Stave Log Cut Off Saw Operator Relationship Specialty Start Date End Date Jacqueline Salinas MD [address] [place] [id number] PCP - General 06/23/11 documented as of this encounter
--- OUTSIDE RECORDS SUMMARY | 2024-08-11 14:21 | XMS_ITS | Encounter Summary ---
Author Organization [facility] Address [address] [address] Care Team Providers Care Sole Rougher Name Role Phone Aj Nicole MD Primary Care Provider [phone] Reason for Visit * Reason Comments Sore Throat Sore throat for 3 da ys. Chills and fever. Pt taking Tylenol for his Sx. Right ear pain from ear to his jaw. Encounter Details Date Type Department Care Team (Late st Contact Info) Description 05/23/2022 8:30 AM CDT Office Visit [facility] [address] [place] [address] Salina Arias NP [address] [place] [address] Strep pharyngitis (Primary Dx); Sore throat Social History Tobacco Use Types Packs/Day Years Used Date Smoking Tobacco: Never Smokeless Tobacco: Never PHQ-2 Answer Date Recorded PHQ-2 Total Score (If total score is 3 or more points, staff should administer the PHQ-9) 0 06/11/2021 Sex and Gender Information Value Date Recorded Sex Assigned at Not on file 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 The following is recommended treatment for Strep pharyngitis (strep throat) Complete antibiotic as prescribed Take Tylenol or Motrin for fever/pain Gargle with warm salt water (1tsp salt/1 cup water) or warm tea with honey and lemon to soothe pain Suck on ice chips, popsicles, cough drops, or throat lozenges You may return to work, daycare, or school 24 hours after starting antibiotics and you are fever free without use of Tylenol or Motrin. Strep pharyngitis is contagious. Do not share food, drinks, or utensils Replace your toothbrush within 48 hours after starting antibiotics. If signs/symptoms do not improve or worsen, follow up with your PCP. documented in this encounter Ordered Prescriptions Prescription Sig Dispense Quantity Refills Last Filled Start Date End Date amoxicillin 500 mg tablet/capsuleIndic ations:Strep pharyngitis Take 1 tablet/caps ule (500 mg total) by mouth 2 (two) times a day for 10 days 20 tablet/capsule 05/23/2022 06/02/2022 documented in this encounter Progress Notes * Salina Arias NP - 05/23/2022 8:30 AM CDT Images from the original note were not included. Subjective/Objective Patient ID: Saqib Morillo is a 22 y.o. male. Chief Complaint Sore Throat (Sore throat for 3 days. Chills and fever. Pt taking Tylenol for his Sx. Right ear painfrom ear to his jaw.) Patient presents to the [facility] care [facility] with a three day history of sore throat, right ear pain, chills and fever. He has been taking Tylenol for his symptoms. Sore Throat Associated symptoms include ear pain (right). Pertinent negatives include no congestion, coughing, diarrhea, ear discharge, headaches, shortness of breath or vomiting. Review of Systems Constitutional: Positive for chills and fever. Negative for activity change, appetite change and fatigue. HENT: Positive for ear pain (right) and sore throat. Negative for congestion, ear discharge, postnasal drip, rhinorrhea and sinus pressure. Eyes: Negative for discharge. Respiratory: Negative for cough and shortness of breath. Gastrointestinal: Negative for diarrhea, nausea and vomiting. Musculoskeletal: Negative for myalgias. Skin: Negative for rash. Neurological: Negative for headaches. Hematological: Negative for adenopathy. Physical Exam Vitals reviewed. Constitutional: General: He is not in acute distress. Appearance: Normal appearance. He is well-developed. He is not ill-appearing. HENT: Head: Normocephalic. Right Ear: Ear canal and external ear normal. Tympanic membrane is erythematous. Left Ear: Tympanic membrane, ear canal and external ear normal. Nose: No congestion or rhinorrhea. Right Sinus: No maxillary sinus tenderness or frontal sinus tenderness. Left Sinus: No maxillary sinus tenderness or frontal sinus tenderness. Mouth/Throat: Lips: [place]. Mouth: Mucous membranes are moist. Pharynx: Oropharyngeal exudate and posterior oropharyngeal erythema present. Tonsils: Tonsillar exudate present. Eyes: General: Right eye: No discharge. Left eye: No discharge. Conjunctiva/sclera: Conjunctivae normal. Cardiovascular: Rate and Rhythm: Normal rate and regular rhythm. Pulmonary: Effort: Pulmonary effort is normal. No respiratory distress. Breath sounds: Normal breath sounds and air entry. Abdominal: Tenderness: There is no abdominal tenderness. Musculoskeletal: General: Normal range of motion. Cervical back: Neck supple. Lymphadenopathy: Head: Right side of head: No tonsillar adenopathy. Left side of head: No tonsillar adenopathy. Cervical: No cervical adenopathy. Skin: General: Skin is warm and dry. Findings: No rash. Neurological: Mental Status: He is alert and oriented to person, place, and time. Mental status is at baseline. Psychiatric: Attention and Perception: Attention normal. Mood and Affect: Mood normal. Behavior: Behavior normal. Behavior is cooperative. Thought Content: Thought content normal. Judgment: Judgment normal. Vitals: 05/23/22 0829 BP: 134/66 BP Location: Right arm Patient Position: Sitting Pulse: 98 Resp: 18 Temp: 36.7 ??C (98 ??F) TempSrc: Temporal SpO2: 99% Weight: 95.3 kg (210 lb) Height: 185.4 cm (6' 1 ) Assessment/Plan Antibiotics as prescribed Tylenol/Motrin as needed for fever/pain Follow up with PCP as needed Reviewed ER precautions Diagnoses and all orders for this visit: Strep pharyngitis (Primary) - amoxicillin 500 mg tablet/capsule; Take 1 tablet/capsule (500 mg total) by mouth 2 (two) times a day for 10 days Sore throat - POCT rapid strep A Recent Results (from the past 4 hour(s)) POCT rapid strep A Collection Time: 05/23/22 8:44 AM Result Value Ref Range Rapid Strep A, POC Positive Patient Instructions The rapid strep exam performed at the [facility] today was positive. The following is recommended treatment for Strep pharyngitis (strep throat) Complete antibiotic as prescribed Take Tylenol or Motrin for fever/pain Gargle with warm salt water (1tsp salt/1 cup water) or warm tea with honey and lemon to soothe pain Suck on ice chips, popsicles, cough drops, or throat lozenges You may return to work, daycare, or school 24 hours after starting antibiotics and you are fever free without use of Tylenol or Motrin. Strep pharyngitis is contagious. Do not share food, drinks, or utensils Replace your toothbrush within 48 hours after starting antibiotics. If signs/symptoms do not improve or worsen, follow up with your PCP. Disposition Treatment plan including expectations, follow up, and return precautions discussed with patient/parent, verbalizes understanding. Medication dosage, use, and potential adverse reactions discussed with patient/parent. Advised to follow up with PCP if symptoms do not resolve as expected or sooner if condition worsens. Signs/symptoms warranting ER evaluation reviewed. Patient and/or guardian was given an opportunity to ask questions, questions answered. Salina Arias NP documented in this encounter Plan of Treatment Not on file documented as of this encounter Procedures Procedure Name Priority Date/Time Associated Diagnosis Comments POCT RAPID STREP Routine 05/23/2022 8:44 AM CDT Sore throat documented in this encounter Results * (ABNORMAL) POCT rapid strep A (05/23/2022 8:44 AM CDT) Rapid Strep A, POC Positive Swab 05/23/2022 8:44 AM CDT us Salina Arias NP POINT OF CARE TEST ORDERABLES Fi nal Result documented in this encounter Visit Diagnoses Diagnosis Strep pharyngitis- Primary Sore throat Acute pharyngitis documented in this encounter Care Teams Sole Rougher Relationship Specialty Start Date End Date Aj Nicole MD [address] [place] [id number] PCP - General Family Medicine 05/31/21 documented as of this encounter
--- OUTSIDE RECORDS SUMMARY | 2024-08-11 14:21 | XMS_ITS | Encounter Summary ---
Author Organization [facility] Address [address] [place] [address] Care Team Providers Care Quality Control Supervisor Name Role Phone Jacqueline Salinas MD Primary Care Provider [phone] Reason for Visit * Reason Comments Pain Abdominal intermittent x 2 wee ks with n/v. seen by PMD on monday and given order for obs series to be done monday. today with worsening pain. transferred from OSH for r/o appy Encounter Details Date Type Department Care Team (Latest Contact Info) Description 06/23/2011 12:25 AM STOCK FITTER - 06/24/2011 12:47 PM [facility] Hospital Encounter CG [address] [address] Angelo Ardon MD [address] [place] [phone] Eugenia Bettencourt MD [address] [place] [id number] Medical Inpatient Discharge Disposition: Home or Self Care Social History Tobacco Use Types Packs/Day Years Used Date Smoking Tobacco: Never Assessed Sex and Gender Information Value Date Recorded Sex Assigned at Not on file Gender Identity Not on file Sexual Orientation Not on file documented as of this encounter Last Filed Vital Signs Vital Sign Reading Time Taken Comments Blood Pressure 96/54 06/24/2011 11:37 AM STOCK FITTER Pulse 72 06/24/2011 11:37 AM STOCK FITTER Temperature 36.6 ??C (97.8 ??F) 06/24/2011 11:[address] Respiratory Rate 20 06/24/2011 11:37 AM STOCK FITTER Oxygen Saturation - - Inhaled Oxygen Concentration - - Weight 44.5 kg (98 lb) 06/23/2011 1:42 AM STOCK FITTER Height - - Body Mass Index - - documented in this encounter Discharge Summaries * Cecilio Calvo MD - 06/24/2011 4:14 PM CST Pediatric Surgery Discharge Summary This is a clinical resume for patient Saqib Morillo for attending Burton Lezama MD Admission Date: 06/23/2011 Discharge Date: 06/24/2011 Hospitalization duration: Hospital Day: 1 HPI: 11yo M with Generalized abdominal pain, epigastric, right upper and left upper quadrants, coming and going for past 2 weeks, with intervals with no pain whatsoever with toleration of meals, but also intervals of severe pain, vomitting. Pain, vomitting acute last night so presented to ER. No measured temperature at home. No sick contacts in family. No past medical history on file. No past surgical history on file. No family history on file. Clinical course: improved; Pt was admitted to surgery to rule out appendicitis. Pt was admitted to the floor with IVFs and made NPO. Images at OSH led us to believe that pt had mesenteric adenitis although appendicitis could not be completely ruled out. CT from OSH was read by our radiology dept and they agreed that appendicitis was highly unlikey. Diet was advanced and pt tolerated without complication. The night of HD#1 a CBC showed WBC 8.45 with 15 Bands. Pt was AF and clinical exam was completely benign at that time. On HD#2 an a.m. CBC was drawn: WBC 7.9 Bands 2. A CXR was done on HD#2 to rule out an additional source of infection. The pt continued to improve and was discharged to home. Pertinent labs: CBC w/o Manual Diff: Component Name 06/24/11 0715 06/23/11 1735 06/23/11 0359 WBC 7.99 2 Bands 8.45 15 Bands 11.48 HGB 13.0 13.0 13.7 HCT 37.9 36.9 39.0 PLTCOUNT 237 245 262 Consultations: None Diagnostic studies: See hospital course Procedures: None Discharge Physical Exam: Relevent findings include: General: healthy, alert and no distress Neck: range of motion is intact, no masses, thyroid not enlarged, no adenopathy, supple Lungs: breath sounds symmetrical without rales or wheezes Heart: regular rate and rhythm, normal S1 and S2, no murmurs Abdomen: soft, non-tender, non-distended and no hepatosplenomegaly or masses Skin: no rashes There are no discharge medications for this patient. Discharge Diagnosis(es): Mesenteric Adenitis May follow up with PCP if needed being no surgical intervention is not needed at this time. Return to ER or call [phone] and page pediatric surgery resident if develop severe pain, nausea, vomiting, or fever > 101.0 F. Cecilio Calvo MD CC: Jacqueline Salinas MD K FITTER documented in this encounter Discharge Instructions * Discharge Instructions* Emma Neely RN - 06/24/2011 12:36 PM STOCK FITTER Discharge Instructions for: Saqib Morillo Discharge Procedure Orders CALL PHYSICIAN If you experience increasing or unrelieved pain, drainage, redness, bleeding, or swelling at surgical site and/or IV site, any vomiting, persistent fever of 100.5 degrees or greater, unable to urinate in 6-8 hours or uncomfortable. PATIENT TO CALL PHYSICIAN/CLINIC FOR APPOINTMENT May follow up with PCP with further issues. No surgical intervention needed at this time. REGULAR DIET AT HOME ACTIVITY TOLERATED NO ACTIVITY RESTRICTIONS AT DISCHARGE The following belonging have been returned to you If your child has any worsening of his or her condition, please call your primary care doctor (or their exchange if after hours) or return to the ED if your primary care doctor cannot be reached. 06/24/2011 K FITTER * Discharge Instructions* Document, Scanned - 06/27/2011 12:18 PM STOCK FITTER K FITTER documented in this encounter Progress Notes * Burton Lezama MD - 06/24/2011 8:05 AM CST Pediatric General Surgery Progress Note Saqib Morillo Admit Date: 06/23/2011 12:25 AM Hospital Day: 1 Subjective Generalized abdominal pain, epigastric, right upper and left upper quadrants, coming and going for past 2 weeks, with intervals with no pain whatsoever with toleration of meals, but also intervals ofsevere pain, vomitting. Pain, vomitting acute last night so presented to ER. No measured temperature at home. No sick contacts in family No acute events since admission. No complaints o/n. Objective Data Vitals: 06/23/11 2050 06/23/11 2345 06/24/11 0425 06/24/11 0758 BP: 70/40 86/43 92/54 Pulse: 70 60 74 Temp: 98.6 ??F 97.8 ??F 96.8 ??F 97.8 ??F Resp: 12 14 18 Weight: Intake/Output Summary (Last 24 hours) at 06/24/11 0805 Last data filed at 06/24/11 0801 Gross per 24 hour Intake 3160 ml Output 400 ml Net 2760 ml Component Name 06/24/11 0715 06/23/11 1735 WBC 7.99 2 Bands 8.45 15 bands RBC 4.42 4.4 HGB 13.0 13 HCT 37.9 37 MCV 85.7 -- MCH 29.4 -- MCHC 34.3 -- RDW 12.9 -- PLTCOUNT 237 245 LYMPHPCT -- 20.1* MONOCYTPCT -- 6.9 EOSINPCT -- 3.3 BASOPHILPCT -- 0.4 NRBC -- -- GRANPCT -- 69.3* MONOCYTPCT -- 6.9 EOSINPCT -- 3.3 BASOPHILPCT -- 0.4 Component Name 06/23/11 0359 WBC 11.48 6 Bands RBC 4.65 HGB 13.7 HCT 39.0 MCV 83.9 MCH 29.5 MCHC 35.1 RDW 12.5 PLTCOUNT 262 LYMPHPCT -- MONOCYTPCT -- EOSINPCT -- BASOPHILPCT -- NRBC -- GRANPCT -- MONOCYTPCT -- EOSINPCT -- BASOPHILPCT -- Physical Exam General appearance: alert, cooperative, no distress Lungs: breath sounds normal and symmetric; no rales or wheezes Abdomen: soft without mass, with normal bowel sounds, mild tenderness in midline to right sided areas Extremities: no clubbing, cyanosis or edema Assessment/Plan 11yoM Abdominal Pain; likely Mesenteric lymphadenitis 1. Pt stable; slept thru the night 2. WBC stable; Bands @ 2 down from 15 o/n 3. Strep and mono tests: both negative 4. f/u CXR; rule out pneumonia 5. Will cont to observe Cecilio Calvo MD 06/24/2011 8:05 AM CXR:PA and lateral views of the chest are obtained. No prior examinations are available for comparison. The cardiothymic silhouette is within normal limits. The lungs are hyperinflated with mild increased perihilar markings in a pattern consistent with reactive airways disease. No confluent alveolar infiltrate is identified. No bony or soft tissue abnormalities are appreciated D/C home. Cecilio Calvo MD I have seen and examined this patient and agree with above note as amended by me. Burton Lezama MD 06/24/2011 4:31 PM K FITTER * Beata Stover RN - 06/23/2011 7:49 PM CST No significant events throughout shift. K FITTER * Danni Cárdenas RN - 06/23/2011 2:24 PM CST Shift Summary ([id number]): No significant events. Danni Cárdenas RN K FITTER * Burton Lezama MD - 06/23/2011 8:38 AM CST Pediatric General Surgery Progress Note Saqib Morillo Admit Date: 06/23/2011 12:25 AM Hospital Day: 0 Subjective Generalized abdominal pain, epigastric, right upper and left upper quadrants, coming and going for past 2 weeks, with intervals with no pain whatsoever with toleration of meals, but also intervals ofsevere pain, vomitting. Pain, vomitting acute last night so presented to ER. No measured temperature at home. No sick contacts in family No acute events since admission. Objective Data Vitals: 06/23/11 0300 06/23/11 0400 06/23/11 0425 06/23/11 0735 BP: 98/49 110/48 100/72 Pulse: 76 72 70 64 Temp: 97 ??F 97.8 ??F 98 ??F Resp: 18 16 18 18 Weight: Intake/Output Summary (Last 24 hours) at 06/23/11 0839 Last data filed at 06/23/11 0711 Gross per 24 hour Intake 300 ml Output 0 ml Net 300 ml Component Name 06/23/11 0359 WBC 11.48 6 Bands RBC 4.65 HGB 13.7 HCT 39.0 MCV 83.9 MCH 29.5 MCHC 35.1 RDW 12.5 PLTCOUNT 262 LYMPHPCT -- MONOCYTPCT -- EOSINPCT -- BASOPHILPCT -- NRBC -- GRANPCT -- MONOCYTPCT -- EOSINPCT -- BASOPHILPCT -- Physical Exam General appearance: alert, cooperative, no distress Lungs: breath sounds normal and symmetric; no rales or wheezes Abdomen: soft without mass, with normal bowel sounds, mild tenderness in midline to right sided areas2 Extremities: no clubbing, cyanosis or edema Assessment/Plan 11yoM Abdominal Pain, likely Mesenteric lymphadenitis 1. Pt stable; slept thru the night 2. WBC down from 15 to 11 3. F/u Strep and mono tests 4. Will cont to observe Cecilio Calvo MD 06/23/2011 8:[address] findings with Rad(unable to upload images from OSH); agreed that it was unlikely appendicitis. Ok to feed. Likely CBC in am if AF. Cecilio Calvo MD I have seen and examined this patient and agree with above note as amended by me. History noted On examination Abdomen soft No tenderness CBC with diff improving He is hungry Plan: start PO feed Burton Lezama MD 06/23/2011 11:19 AM K FITTER documented in this encounter H&P Notes * Virgilio Ruiz MD - 06/23/2011 2:55 AM CST Pediatric General Surgery History and Physical Encounter Date: @ENCDATE@ Patient's Primary Care Physician: No primary provider on file. Name: Saqib Morillo Age: 11 y.o. Race: white Sex: male Date: 06/23/2011 Chief Complaint/History of Present Illness Generalized abdominal pain, epigastric, right upper and left upper quadrants, coming and going for past 2 weeks, with intervals with no pain whatsoever with toleration of meals, but also intervals ofsevere pain, vomitting. Pain, vomitting acute last night so presented to ER. No measured temperature at home. No sick contacts in family. No past medical history on file. No past surgical history on file. No family history on file. Social History Occupational History ??? Not on file. Social History Main Topics ??? Smoking status: Not on file ??? Smokeless tobacco: Not on file ??? Alcohol Use: Not on file ??? Drug Use: Not on file ??? Sexually Active: Not on file (Not in a hospital admission) No Known Allergies Review of Systems Pertinent items are noted in HPI Exam Vitals: 06/23/11 0133 06/23/11 0142 BP: 94/56 Pulse: 78 Temp: 98.8 ??F Resp: 20 Weight: 44.453 kg (98 lb) General appearance: alert, cooperative, no distress, oriented to person, place, and time Lungs: breath sounds normal and symmetric; no rales or wheezes Heart: regular rhythm, normal S1 and S2, without murmurs, gallops or rubs Abdomen: soft, non distended, bowel sounds present, mild discomfort in midline to right sided areas. Extremities: no clubbing, cyanosis or edema Data OSH cbc w/ wbc 14K, 80% neut Ct a/p w/ prominent mesenteric adenitis, possible fluid filled appendix Assessment and Plan Abdominal pain, most likely mesenteric adenitis given history, exam Admit Hydrate w/ iv fluids, npo Repeat cbc w/ manual diff tomorrow to confirm diagnosis if improves or does not worsen D/w Dr. Bettencourt. Virgilio Ruiz MD 06/23/2011 3:02 AM K FITTER documented in this encounter Procedure Notes * Document, Scanned - 07/11/2011 7:06 PM CSTAssociated Order(s): IMAGING/RADIOLOGY/XRAY RESULTS ORDER K FITTER * Document, Scanned - 06/27/2011 12:18 PM CSTAssociated Order(s): LAB RESULTS ORDER K FITTER * Document, Scanned - 06/27/2011 12:18 PM CSTAssociated Order(s): IMAGING/RADIOLOGY/XRAY RESULTS ORDER K FITTER documented in this encounter ED Notes * Angelo Ardon MD - 06/23/2011 2:35 AM CST Images from the original note were not included. EMERGENCY DEPARTMENT 06/23/2011 Dear No primary provider on file. We had the pleasure of caring for your patient, Saqib Morillo in our emergency department on 06/23/2011. A note from the provider(s) who cared for your patient is attached. Should you wish to access any laboratory results, please call . Should you wish to access any radiology results, please call , option 3. In addition, you can access patient information 24 hours a day, from any computer, through [employer], the online version of our electronic medical record. If you would like to use this service, please call Thi Dee, Connectivity Coordinator, at . We appreciate the opportunity to care for your patients. If you would like additional information, please call the emergency department directly at . Sincerely, Angelo Ardon MD Division of Emergency Medicine [facility], [place] [facility] DESIGNATED EMERGENCY DEPARTMENT 06/23/2011 2:35 AM Saqib Morillo [id number] [facility] EMERGENCY DEPT History Chief Complaint Patient presents with ??? Pain Abdominal intermittent x 2 weeks with n/v. seen by PMD on monday and given order for obs series to be done monday. today with worsening pain. transferred from OSH for r/o appy HPI Comments: 11 yo male with 2 wks of daily abd pain mainly gets worse at night with N/V appears relieved by peptobismol appears colically in nature. No diarrhea or fever Patient was [facility] at [facility] andtransferred after CT scan revealed abd adenitis PMH unremarkable PE wn wd male pink in no distress ears- lungs clear RRR abd soft Nt,ND no rashes sleeping comfortably CT scan reveals mesenteric adenitis (outside and surg resident confirm) gen surg consult - see consult Will admit for IV fluids and serial exam, repeat CBC in am I have personally seen and examined this patient. I have fully participated in the care of this patient. I have reviewed all pertinent clinical information, including history, physical exam and plan.I have reviewed the nurses notes. I have reviewed available labs and radiographic studies. Abd pain Mesenteric adenitis No past medical history on file. No past surgical history on file. History Social History ??? Marital Status: N/A Spouse Name: N/A Number of Children: N/A [...] Review of Systems Review of Systems Constitutional: Negative. HENT: Negative. Eyes: Negative. Respiratory: Negative. Cardiovascular: Negative. Gastrointestinal: Positive for nausea, vomiting and abdominal pain. Negative for diarrhea, constipation and blood in stool. Genitourinary: Negative. BP 94/56 Pulse 78 Temp 98.8 ??F Resp 20 Wt 44.453 kg (98 lb) Physical Exam Physical Exam Procedures Procedures EKG Interpretation Lab/SPO2 Interpretation Progress Notes ED Course Medical Decision Making I have reviewed the: Nursing Notes, Vitals and Outside Records. I have interpreted the following results: Labs and CT Scans. I have discussed the case with Surgery. Hx is unusual for appendicytis - more chronic abd pain occuring nightly and helped by MOM no fever or diarrhea and has not missed any school. CT + as above [place] meds [place] CT scan reveals mesenteric adenitis gen surg consult - see consult Will admit for IV fluids and serial exams, repeat CBC in am Clinical Impression Chronic abd pain Mesenteric adenitis K FITTER * Eduarda Kolb RN - 06/23/2011 2:12 AM CST Surgery at bedside to see pt. K FITTER * Naina Javier RN - 06/23/2011 1:35 AM CST Pt arrives awake and alert, in nad. Mmm. lcta with good aeration and equal bilaterally. abd soft, round, TTP with c/o periumbilical pain rating 1/10. Denies need for analgesia at this time. Reviewed poc with mom and pt who verbalize understanding. Last solids @ 1600, clears @ 2245. Instructed npo. K FITTER * Eduarda Kolb RN - 06/23/2011 1:32 AM CST Resumed care of pt at this time. Introduced self to family. Pt lying in cart with good color in NAd. Updated family on plan of care awaiting MD assessment. K FITTER * Naina Javier RN - 06/23/2011 1:32 AM CSTBed:1
Expected date:
Expected time:
Means of arrival:
Comments:
11 yo abdominal pain K FITTER * Naina Javier RN - 06/23/2011 12:57 AM CST RN report: 11 yo male with no PMH, no home meds, NKDA with abd pain intermittently x 2 weeks. [place]ors[place] with n/v. wbc 14.[address] with questionable appy. 22 g in right AC. zofran 4 mg given and morphine 1 mg @ 2152 K FITTER documented in this encounter Miscellaneous Notes * Miscellaneous Scans - Document, Scanned - 07/18/2011 9:18 AM CST K FITTER * Miscellaneous Scans - Document, Scanned - 06/29/2011 7:30 PM CST K FITTER * Miscellaneous Scans - Document, Scanned - 06/28/2011 8:51 PM CST K FITTER * Miscellaneous Scans - Document, Scanned - 06/28/2011 8:51 PM CST K FITTER * Miscellaneous Scans - Document, Scanned - 06/27/2011 2:59 PM CST K FITTER * Miscellaneous Scans - Document, Scanned - 06/27/2011 12:18 PM CST K FITTER * Miscellaneous Scans - Document, Scanned - 06/27/2011 12:18 PM CST K FITTER * Miscellaneous Scans - Document, Scanned - 06/27/2011 12:18 PM CST K FITTER * Miscellaneous Scans - Document, Scanned - 06/27/2011 12:18 PM CST K FITTER * Miscellaneous Scans - Document, Scanned - 06/27/2011 12:18 PM CST K FITTER documented in this encounter Plan of Treatment Scheduled Orders Name Type Priority Associated Diagnoses Orde r Schedule CT OUTSIDE CONSULTATION Imaging Routine Mesenteric adenitis For radiant use only for 1 Occurrences starting 06/23/2011 documented as of this encounter Procedures Procedure Name Priority Date/Time Associated Diagnosis Comments IMAGING/RADIOLOGY/XRAY RESULTS ORDER 07/11/2011 7:06 PM STOCK FITTER LAB RESULTS ORDER 06/27/2011 12: 18 PM STOCK FITTER XR CHEST 2VW Routine 06/24/2011 9:12 AM STOCK FITTER Mesenteric adenitis CBC W MANUAL DIFFERENTIAL STAT 06/24/2011 7:15 AM STOCK FITTER DIFFERENTIAL MANUAL STAT 06/23/2011 5 :35 PM STOCK FITTER CBC W AUTO DIFFERENTIAL STAT 06/23/2011 5:35 PM STOCK FITTER MONONUCLEOSIS SCREEN Routine 06/23/2011 3:13 PM STOCK FITTER STREP A SCREEN DIRECT Routine 06/23/2011 10:15 AM STOCK FITTER CULTURE STREP GROUP A Routine 06/23/2011 10:15 AM STOCK FITTER CBC W MANUAL DIFFERENTIAL Routine 06/23/2011 3:59 AM STOCK FITTER documented in this encounter Results * IMAGING/RADIOLOGY/XRAY RESULTS ORDER (07/11/2011 7:06 PM STOCK FITTER) Anatomical Region Laterality Modality Other Narrative Transcriptions Document, Scanned - 06/27/2011 12:18 PM CST Document, Scanned - 07/11/2011 7:06 PM CST Scanned Document IMAGING * LAB RESULTS ORDER (06/27/2011 12:18 PM STOCK FITTER) Narrative Transcriptions Document, Scanned - 06/27/2011 12:18 PM CST Scanned Document LAB - THERAPEUTIC DR SIRENA MONITORING ORDERABLES * XR CHEST PA AND LATERAL (06/24/2011 9:12 AM STOCK FITTER) Anatomical Region Laterality Modality Chest Radiographic Una ging 06/24/2011 9:49 AM STOCK FITTER Impressions 06/24/2011 9:49 AM STOCK FITTER ??Reactive airways changes as described above with no confluent infiltrate. Narrative 06/24/2011 9:49 AM STOCK FITTER EXAMINATION:Two-view chest dated ??Jun 24, 2011 09:13:33 [...] CBC W MANUAL DIFFERENTIAL (06/24/2011 7:15 AM STOCK FITTER) WBC 7.99 4.5 - 14.5 K/cumm [facility] RBC 4.42 4.00 - 5.20 mill/cumm [facility] Hemoglobin 13.0 11.5 - 15.5 gm/dl [facility] Hematocrit 37.9 35.0 - 45.0 % [facility] MCV 85.7 77.0 - 95.0 cu microns [facility] MCH 29.4 25.0 - 33.0 uug [facility] MCHC 34.3 31.0 - 37.0 % [facility] RDW 12.9 % [facility] MPV 11.4 fl [facility] Platelet Count 237 100 - 400 K/cumm [facility] Comment Manual Diff Done [facility] Band % Manual 2 % [facility] Neutrophils % Manual 62 24 - 66 % [facility] Lymphocytes % Manual 23 22 - 61 % [facility] Monocytes % Manual 6 3 - 15 % [facility] Eosinophils % Manual 5 0 - 10 % [facility] Atypical Lymphocyte % Manual 2 % [facility] RBC Morphology Slight Anisocytosis, Poikylocytosis [facility] BLOOD SPECIMEN / Unknown 06/24/2011 7:15 AM STOCK FITTER 06/24/2011 7:23 AM STOCK FITTER Gerard Garcia MD LAB - HEMATOLOGY ORD ERABLES Performing Organization Address City/State/[facility] Co de Phone Number [facility] [place] [address] * (ABNORMAL) DIFFERENTIAL MANUAL (06/23/2011 5:35 PM STOCK FITTER) Pathologist [facility] Comment Manual Diff Done [facility] Band % Manual 15 % [facility] Neutrophils % Manual 55 24 - 66 % [facility] Lymphocytes % Manual 16(L) 22 - 61 % [facility] Monocytes % Manual 5 3 - 15 % [facility] Eosinophils % Manual 4 0 - 10 % [facility] Atypical Lymphocyte % Manual 5 % [facility] RBC Morphology Slight Anisocytosis [facility] BLOOD SPECIMEN / Unknown 06/23/2011 5:35 PM STOCK FITTER 06/23/2011 6:44 PM STOCK FITTER Angelo Ardon MD LAB - HEMATOLOGY O RDERABLES Performing Organization Address [facility] Co de Phone Number [facility] [address] [place] [address] * (ABNORMAL) CBC W AUTO DIFFERENTIAL (06/23/2011 5:35 PM STOCK FITTER) WBC 8.45 4.5 - 14.5 K/cumm [facility] RBC 4.40 4.00 - 5.20 mill/cumm [facility] Hemoglobin 13.0 11.5 - 15.5 gm/dl [facility] Hematocrit 36.9 35.0 - 45.0 % [facility] MCV 83.9 77.0 - 95.0 cu microns [facility] MCH 29.5 25.0 - 33.0 uug [facility] MCHC 35.2 31.0 - 37.0 % [facility] RDW 12.6 % [facility] MPV 11.4 fl [facility] Platelet Count 245 100 - 400 K/cumm [facility] Granulocytes % 69.3(H) 24 - 66 % [facility] Lymphocytes % 20.1(L) 22 - 61 % [facility] Monocytes % 6.9 3 - 15 % [facility] Eosinophils % 3.3 0 - 10 % [facility] Basophils % 0.4 0 - 1 % [facility] Comment Manual Diff Automated Diff Performed [facility] BLOOD SPECIMEN / Unknown 06/23/2011 5:35 PM STOCK FITTER 06/23/2011 5:55 PM STOCK FITTER Cecilio Calvo MD LAB - HEMATOLOGY ORD ERABLES Performing Organization Address [facility] Co de Phone Number [facility] [address] [place] [address] * MONONUCLEOSIS SCREEN (06/23/2011 3:13 PM STOCK FITTER) Pathologist [facility] Mononucleosis Screen Negative Negative [facility] Blood specimen (specimen) BLOOD SPECIMEN / Unknown 06/23/2011 3:13 PM STOCK FITTER 06/23/2011 3:24 PM STOCK FITTER Virgilio Ruiz MD LAB - CHEMISTRY STACEY WILLIS Performing Organization Address City/[facility]/ZIP Co de Phone Number [facility] [address] [place] [id number] * CULTURE STREP GROUP A (06/23/2011 10:15 AM STOCK FITTER) Result [facility] Comment: Final NO growth of beta-hemolytic strep Group A ENTIRE THROAT (SURFACE REGION OF NECK) / Unknown 06/23/2011 10:15 AM STOCK FITTER 06/23/2011 10:44 AM STOCK FITTER Narrative Resulting Agency Comment Performed By [facility];[address] [place] [address] [employer] [address] Angelo Ardon MD LAB - MICROBIOLOGY ORDERABLES Performing Organization Address [facility]/ZIP Co de Phone Number [facility] [facility] [address] [place] [id number] * STREP A SCREEN DIRECT (06/23/2011 10:15 AM STOCK FITTER) Strep A Rapid Negative Neg Grp A Beta Strep [facility] Miscellaneous samples (specimen) ENTIRE THROAT (SURFACE REGION OF NECK) / Unknown 06/23/2011 10:15 AM STOCK FITTER 06/23/2011 10:26 AM STOCK FITTER Virgilio Ruiz MD LAB - MICROBIOLOGY O RDERABLES Performing Organization Address City/[facility]/ZIP Co de Phone Number [facility] [address] [place] [phone] * (ABNORMAL) CBC W MANUAL DIFFERENTIAL (06/23/2011 3:59 AM STOCK FITTER) WBC 11.48 4.5 - 14.5 K/cumm [facility] RBC 4.65 4.00 - 5.20 mill/cumm [facility] Hemoglobin 13.7 11.5 - 15.5 gm/dl [facility] Hematocrit 39.0 35.0 - 45.0 % [facility] MCV 83.9 77.0 - 95.0 cu microns [facility] MCH 29.5 25.0 - 33.0 uug [facility] MCHC 35.1 31.0 - 37.0 % [facility] RDW 12.5 % [facility] MPV 11.1 fl [facility] Platelet Count 262 100 - 400 K/cumm [facility] Comment Manual Diff Done [facility] Band % Manual 6 % [facility] Neutrophils % Manual 62 24 - 66 % [facility] Lymphocytes % Manual 15(L) 22 - 61 % [facility] Monocytes % Manual 7 3 - 15 % [facility] Eosinophils % Manual 5 0 - 10 % [facility] Basophils % Manual 1 0 - 1 % [facility] Atypical Lymphocyte % Manual 4 % [facility] RBC Morphology Normal [facility] BLOOD SPECIMEN / Unknown 06/23/2011 3:59 AM STOCK FITTER 06/23/2011 4:02 AM STOCK FITTER Virgilio Ruiz MD LAB - HEMATOLOGY ORD ERABLES [facility] [address] [place] [address] documented in this encounter Visit Diagnoses Diagnosis Mesenteric adenitis Nonspecific mesenteric lymphadenitis documented in this encounter Administered Medications Inactive Administered Medications - up to 3 most recent administrations Medication Order MAR Action Action Date Dose Rate Site 0.9 % nacl IV BOLUS 890 mL 890 mL (20 mL/kg ? 44.5 kg), at 890 mL/hr, Administer over 60 Minutes, Intravenous, ONCE, 1 dose, On Alee 06/23/11 at 0800 $ Given 06/23/2011 7:57 AM STOCK FITTER 890 mL 890 mL/hr acetaminophen (TYLENOL) tablet 325 mg 325 mg (7.3 mg/kg), Oral, EVERY 4 HOURS PRN, Fever, Pain, Starting on Alee 06/23/11 at 0358, Until 06/25/11 at 0048, Maximum allowable Acetaminophen amount = 4 Grams (4000 mg) / 24 hours. $ Given 06/23/2011 9:31 AM STOCK FITTER 325 mg acetaminophen-codeine (TYLENOL #3) 300-30 MG tablet 1 Tab 1 tablet, Oral, EVERY 4 HOURS PRN, Pain, Starting on Alee 06/23/11 at 0358, Until 06/25/11 at 0048, Maximum allowable Acetaminophen amount = 4 Grams (4000 mg) / 24 hours. $ Given 06/23/2011 2:30 PM STOCK FITTER 1 tablet dextrose 5% and 0.45% NaCl with KCl 20 mEq infusion at 100 mL/hr, Intravenous, CONTINUOUS, Starting on Alee 06/23/11 at 0400, Until 06/25/11 at 0048 $ New Bag/Syringe 06/24/2011 9:48 AM STOCK FITTER 100 mL/hr $ New Bag/Syringe 06/24/2011 12:34 AM STOCK FITTER 100 m L/hr $ New Bag/Syringe 06/23/2011 2:33 PM STOCK FITTER 100 mL /hr ibuprofen (MOTRIN) tablet 400 mg 400 mg (8.99 mg/kg), Oral, EVERY 6 HOURS PRN, Pain, Fever, Starting on Alee 06/23/11 at 0358, Until 06/25/11 at 0048, Maximum allowable amount = 3200 mg / 24 hours. $ Given 06/23/2011 11:53 AM STOCK FITTER 400 mg documented in this encounter Active and Recently Administered Medications Times are shown in STOCK FITTER. Scheduled Medication Order 06/22/2011 06/23/2011 06/24/2011 0.9 % nacl IV BOLUS 890 mL (COMPLETED) 890 mL (20 mL/kg ? 44.5 kg), at 890 mL/hr, Administer over 60 Minutes, Intravenous, ONCE, 1 dose, On Alee 06/23/11 at 0800 0757 ($ Given - Provider: Danni Cárdenas, HOLLIE)0857 (Rx Stopped - Provider: Danni Cárdenas, HOLLIE) Continuous Medication Order 06/22/2011 06/23/2011 06/24/2011 dextrose 5% and 0.45% NaCl with KCl 20 mEq infusion (CANCELED) at 100 mL/hr, Intravenous, CONTINUOUS, Starting on Alee 06/23/11 at 0400, Until 06/25/11 at 0048 0400 ($ New Bag/Syringe - Provider: Eduarda Kolb RN)1433 ($ New Bag/Syringe - Provider: Danni Cárdenas, HOLLIE) 0034 ($ New Bag/Syringe - Provider: Maine Rubin RN)0948 ($ New Bag/Syringe - Provider: Emma Neely RN) PRN Medication Order 06/22/2011 06/23/2011 06/24/2011 acetaminophen (TYLENOL) tablet 325 mg (CANCELED) 325 mg (7.3 mg/kg), Oral, EVERY 4 HOURS PRN, Fever, Pain, Starting on Alee 06/23/11 at 0358, Until 06/25/11 at 0048, Maximum allowable Acetaminophen amount = 4 Grams (4000 mg) / 24 hours. 0931 ($ Given - Provider: Danni Cárdenas RN) acetaminophen-codeine (TYLENOL #3) 300-30 MG tablet 1 Tab (CANCELED) 1 tablet, Oral, EVERY 4 HOURS PRN, Pain, Starting on Alee 06/23/11 at 0358, Until 06/25/11 at 0048, Maximum allowable Acetaminophen amount = 4 Grams (4000 mg) / 24 hours. 1430 ($ Given - Provider: Danni Cárdenas RN) ibuprofen (MOTRIN) tablet 400 mg (CANCELED) 400 mg (8.99 mg/kg), Oral, EVERY 6 HOURS PRN, Pain, Fever, Starting on Alee 06/23/11 at 0358, Until 06/25/11 at 0048, Maximum allowable amount = 3200 mg / 24 hours. 1153 ($ Given - Provider: Malaika Loving RN) documented in this encounter Care Teams Quality Control Supervisor Relationship Specialty Start Date End Date Jacqueline Salinas MD [address] [place] [phone] PCP - General 06/23/11 documented as of this encounter
--- OUTSIDE RECORDS SUMMARY | 2024-08-11 14:21 | XMS_ITS | Referral Summary ---
Author Organization [facility] Address [address] [place] [address] Care Team Providers Care Canal Superintendent Name Role Phone Jacqueline Salinas MD Primary Care Provider [phone] Source Comments [facility],non-owned Affiliates and Associated Physician Practices is amultiple site organization consisting of ambulatory clinics and hospital sitesin [place], [place], [place] and [place]. This disclosure is being madepursuant to the Care Everywhere program and may not contain all information available regarding this patient. Last updated 18.[facility] Allergies No known active allergies [...] Comments Blood Pressure 97/53 07/07/2011 9:40 AM DIRECTOR PROPERTY Pulse 67 07/07/2011 12:56 PM DIRECTOR PROPERTY Temperature 36.9 ??C (98.4 ??F) 07/07/2011 12:[address] Respiratory Rate 18 07/07/2011 12:56 PM DIRECTOR PROPERTY Oxygen Saturation 99% 07/07/2011 12:56 PM DIRECTOR PROPERTY Inhaled Oxygen Concentration - - Weight 43.5 kg (95 lb 14.4 oz) 07/07/2011 9:40 A M DIRECTOR PROPERTY Height - - Body Mass Index - - Plan of Treatment Not on file Care Teams Canal Superintendent Relationship Specialty Start Date End Date Jacqueline Salinas MD [address] [place], [place] [phone] PCP - General 06/23/11
--- OUTSIDE RECORDS SUMMARY | 2024-08-11 14:22 | XMS_ITS | Encounter Summary ---
Author Organization [facility] Address [address] [place] [address] Care Team Providers Care Assignment Desk Assistant Name Role Phone Unavailable Primary Care Provider Unavailabl e Encounter Details Date Type Department Care Team (Late st Contact Info) Description 02/02/2010 12:29 AM CDT - 02/02/2010 1:09 AM CDT Hospital Encounter [facility] Bhupinder Soto MD [address] [place] [address] Jacqueline Salinas Otitis media; Acute upper respiratory infection Social History Tobacco Use Types Packs/Day Years Used Date Smoking Tobacco: Never Assessed Sex and Gender Information Value Date Recorded Sex Assigned at Not on file 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
--- OUTSIDE RECORDS SUMMARY | 2024-08-11 14:22 | XMS_ITS | Encounter Summary ---
Author Organization [facility] Healthcare Address [address] [place] [address] Care Team Providers Care Aerobics Instructor Name Role Phone Unavailable Primary Care Provider Unavailabl e Encounter Details Date Type Department Care Team (Late st Contact Info) Description 09/18/2007 9:09 AM INDEPENDENT DRIVER - 09/18/2007 11:45 AM INDEPENDENT DRIVER Hospital Encounter [facility] Bhupinder [facility] Social History Tobacco Use Types Packs/Day Years Used Date Smoking Tobacco: Never Assessed Sex and Gender Information Value Date Recorded Sex Assigned at Not on file Legal Sex Male 12:24 AM INDEPENDENT DRIVER Gender Identity Not on file Sexual Orientation Not on file documented as of this encounter Plan of Treatment Not on file documented as of this encounter Visit Diagnoses Not on filedocumented in this encounter
== END 2024-08-06 13:35 | disposition home or self-care (01) ==
LOC: ANHED 07:13 → ANH2MED 08:17 → ANH3MEDSUR 09:31
PROVIDERS: General Practice; Admitting Provider Surgery; Emergency Provider Emergency Medicine; PCP Family Medicine; Visit Provider Surgery
PROC: (CPT 46040; principal; 2024-08-05 11:00)
DX: K61.0 Anal abscess (principal); D72.829 Elevated white blood cell count, unspecified; E66.9 Obesity, unspecified; Z68.30 Body mass index [BMI] 30.0-30.9, adult; Z79.899 Other long term (current) drug therapy
CPT/HCPCS: 46050; 36415; 74177; 80053; 80074; 81001; 83036; 83605; 83690; 85025; 86703; 87040; 87491; 87591; 96361; 96365; 96375; 96376; 99285; A9270; G0378; G0432; J1100; J1171; J2250; J2270; J2405; J2543; J2704; J3010; J7120; Q9967